=== PATIENT | male | born 1970 | race Caucasian/White ===

== ENCOUNTER → 2016-09-01 | Outpatient (CLI) | payer BC ==
--- NOTE | 2016-09-01 16:17 | MOTOR CONDUCTION ---
REQUESTING: Dr. Whaley. CLINICAL DIAGNOSIS: Episodes of memory loss, question nonconvulsive seizures or partial seizures. ELECTROENCEPHALOGRAM DIAGNOSIS: Essentially normal during wakefulness. DESCRIPTION OF TRACING: This EEG was obtained in the laboratory and was of good technical quality. A few or no muscle movements artifacts are seen. A simultaneous video analysis of patient movement and behavior was obtained. Photic stimulation was performed, hyperventilation was not. Drowsiness was not seen. Under these conditions, there is evidence for normal appearing background rhythm in the alpha range of up to 10 Hz of maximum frequency and 40 microvolts of maximum amplitude. This is maximum posterior head regions bilaterally symmetrical. Polymorphic mid frequency theta activity of modest voltage is seen over all head regions without clear focal or regional predominance. Anterior head region maximum bilaterally symmetrical low voltage fast activity beta range is present. Photic stimulation provokes a minimal driving response without a photomyogenic or photoparoxysmal component. At no time during the waking tracing is there evidence for potentially epileptogenic activity in the form of polyspike or spike wave bursts, focal sharp waves or focal spikes. INTERPRETATION: This electroencephalogram is essentially normal during wakefulness without evidence for focal or generalized encephalopathy and without evidence for potentially epileptogenic activity.
--- NOTE | 2016-09-04 08:47 | CODING QUERY NO DIAGNOSIS ---
: 1970 TREATMENT RENDERED WITHOUT A DIAGNOSIS To promote full compliance with coding requirements relating to patient care, physician participation is requested in all cases of digital communications manager uncertainty. Please assist us with providing a diagnosis/symptom for the test(s) below: A diagnosis/symptom was not documented on your Order. A valid diagnosis/symptom is required to bill all insurances. Please remember that we are unable to code a diagnosis of rule out, probable, possible, questionable, or suspected. Tests that require a diagnosis: DOS: 09/01/16 * EEG DIAGNOSIS: Provider Signature: Date: Thank you Shanthi Michael Health Information Management Once completed, please kindly fax back to [phone] For questions please call [phone]
== END | disposition home or self-care (01) ==
LOC: C.NEUR 12:31
PROVIDERS: ATTEND Psychiatry & Neurology Neurology
DX: R41.82 Altered mental status, unspecified (principal)

== ENCOUNTER 2019-04-12 12:09 | Inpatient (IN) ==
[2019-04-12] MEDS ORDERED: NITROGLYCERIN 2% OINTMENT 30GM TUBE EXT STA (12:16)
[2019-04-12 12:46] LABS: Basophils # (auto) 0.03 K/uL (0-0.2); Basophils % (auto) 0.3 %; Eosinophils # (auto) 0.32 K/uL (0-0.5); Eosinophils % (auto) 3.3 %; Hematocrit (blood only) 34.9 % (42-52); Hemoglobin 11.6 g/dL (14.0-18.0); Immature Granulocytes # (auto) 0.05 K/uL (0.00-0.02); Immature Granulocytes % (auto) 0.5 %; Lymphocytes % (auto) 12.4 %; Mean Corpuscular Hemoglobin 31.5 pg (25-34); Mean Corpuscular Hgb Conc 33.2 g/dL (32-36); Mean Corpuscular Volume 94.8 fL (80-100); Mean Platelet Volume 8.1 fL (7.4-10.4); Monocytes % (auto) 15.4 %; Neutrophils # (auto) 6.61 K/uL (1.4-6.5); Neutrophils % (auto) 68.1 %; Platelet Count 509 K/uL (130-400); RDW Coefficient of Variation 14.4 % (11.5-14.5); RDW Standard Deviation 49.9 fL (36.4-46.3); Red Blood Count 3.68 M/uL (4.7-6.1); White Blood Count 9.71 K/uL (4.8-10.8)
--- NOTE | 2019-04-12 12:49 | XRay Report ---
SINGLE VIEW CHEST CLINICAL HISTORY: Atypical chest pain. FINDINGS: An AP, portable, upright chest radiograph is obtained. No prior studies are available for c omparison at the time of dictation. The examination is degraded by portable technique and patient rot ation. The cardiomediastinal silhouette is unremarkable. There are left perihilar airspace opacities , as well as subpleural consolidation at the left lung base. No large pleural effusion or pneumothora x is seen. The bony thorax is grossly intact. IMPRESSION: 1. There are left perihilar and left basilar airspace opacities. Correlate clinically for evidence of pneumonia. Radiographic follow-up to resolution is recommended. 2. The right lung appears clear. Electronically signed by: Ike Yeboah M.D. 04/12/2019 12:48 PM
[2019-04-12 12:55] LABS: INR 1.3 (0.9-1.1); Prothrombin Time 13.2 Seconds (9.0-12.0)
[2019-04-12 13:03] LABS: Alanine Aminotransferase 31 U/L (12-78); Albumin Level 2.6 gm/dl (3.4-5.0); Aspartate Aminotransferase 34 U/L (15-37); BUN Creatinine Ratio 19.1 (10-20); Blood Urea Nitrogen 10 mg/dl (7-18); Calcium 9.2 mg/dl (8.5-10.1); Carbon Dioxide 21 mmol/L (21-32); Chloride 104 mmol/L (98-107); Est GFR (Non-African American) 123.4; Glucose 88 mg/dl (70-99); Lipase 365 U/L (73-393); Sodium 134 mmol/L (136-145)
[2019-04-12] MEDS ORDERED: POTASSIUM CHLORIDE 20 MEQ TABCR PO STA ×2 (13:10→13:29)
[2019-04-12 13:16] LABS: Albumin Globulin Ratio 0.6 (0.9-2); Alkaline Phosphatase 262 U/L (45-117); Bilirubin,Total 0.9 mg/dl (0.2-1); Creatine Kinase 48 U/L (39-308); Creatine Kinase MB 3.1 ng/ml (0.5-3.6); Globulin 4.3 gm/dl (2.5-4.0); Total Protein 6.9 gm/dl (6.4-8.2); Troponin I 0.046 ng/ml (0-0.045)
[2019-04-12] MEDS ORDERED: LEVOFLOXACIN/D5W 750 MG/150 ML BAG IV STA (13:16)
[2019-04-12] MEDS ORDERED: PIPERACILL/TAZOBAC CONSULT ACTIVE PRN ×2 (13:16→17:02)
[2019-04-12] MEDS ORDERED: PIPERACILLIN/TAZOBACTAM 4.5 GM/120 ML BAG IV ONE (13:16)
[2019-04-12] MEDS ORDERED: VANCOMYCIN CONSULT ACTIVE PRN ×2 (13:29→17:02)
[2019-04-12] MEDS ORDERED: VANCOMYCIN HCL 1,750 MG in SODIUM CHLORIDE 0.9% 500 ML IV ONE (13:29)
[2019-04-12] MEDS ORDERED: OPTIRAY 320 125ml IV PRN (13:34)
--- NOTE | 2019-04-12 13:44 | CT Scan Report ---
CT angio chest PE protocol CT DOSE: 637.32 mGy.cm HISTORY: Chest pain. Dyspnea. PE TECHNIQUE: Multiaxial CT images of the chest were performed following the intravenous administration of contrast to evaluate the pulmonary arteries. Maximal intensity projection images were also obtaine d. A dose lowering technique was utilized adhering to the principles of ALARA. COMPARISON STUDY: None. FINDINGS: Thoracic aorta is normal in course and caliber. There are filling defects involving the right lower lobe pulmonary arterial vasculature. No evidence for central pulmonary embolus. Evaluation of the lung parenchyma shows atelectatic changes focally involving the anterior aspects of the right as well as left upper lobe region. Slight interstitial findings are noted at the lung base s. There are components of pleural reactive changes lateral aspect left costophrenic angle. IMPRESSION: 1. Study is positive for right lower lobe pulmonary emboli. 2. Consolidative infiltrative change medial aspect upper right 3. Pleural reactive change at both lung bases. 4. Study should be repeated a later date to ensure complete resolution of the atelectatic or consolid ative changes of the upper lobe regions. The above report was generated using voice recognition software. It may contain grammatical, syntax or spelling errors. Electronically signed by: Maged Crystal M.D. 04/12/2019 1:43 PM
--- NOTE | 2019-04-12 14:33 | Emergency Department Note ---
Entered by Che Pagan acting as a scribe for History of Present Illness General Chief complaint: Chest Pain Time Seen by Provider: 04/12/19 12:10 Source: patient History of Present Illness Provider complaint: Chest Pain Onset (ago): hour(s) 2 Location: chest Radiation: non-radiation Pain Consistency: + now resolved Relieved By: + medication Exacerbated By: + none The patient is a 48 year old male who presents to the Emergency Room with complaints of chest pain that began about 2 hours ago. The patient notes that his pain began while he was laying down but is now resolved. The patient states that his symptoms were relieved by Nitro and Aspirin and were not exacerbated anything. The patient states the pain did not radiate anywhere else on his body. The patient mentioned that this was his first time experiencing chest pain since his surgery in February. Home Medications Home Medications Medication Instructions Recorded Confirmed Type acetaminophen 650 mg PO Q6H PRN 04/12/19 04/12/19 History acetaminophen 650 mg PO Q6H PRN 04/12/19 04/12/19 History albuterol sulfate [Ventolin HFA] 2 puff INHALATION Q6H PRN 04/12/19 04/12/19 History amlodipine 10 mg PO DAILY 04/12/19 04/12/19 History aspirin [Aspirin Low Dose] 81 mg PO DAILY 04/12/19 04/12/19 History atorvastatin [Lipitor] 80 mg PO DAILY 04/12/19 04/12/19 History bisacodyl [Dulcolax (bisacodyl)] 10 mg MD DAILY PRN 04/12/19 04/12/19 History bupropion HCl 150 mg PO DAILY 04/12/19 04/12/19 History clopidogrel 75 mg PO DAILY 04/12/19 04/12/19 History escitalopram oxalate [Lexapro] 10 mg PO DAILY 04/12/19 04/12/19 History escitalopram oxalate [Lexapro] 20 mg PO DAILY 04/12/19 04/12/19 History fluconazole [Diflucan] 100 mg PO DAILY 04/12/19 04/12/19 History fluticasone propionate [Flovent 2 puff INHALATION BID 04/12/19 04/12/19 History HFA] levothyroxine 50 mcg PO DAILY 04/12/19 04/12/19 History magnesium hydroxide [Milk of 30 ml PO DAILY PRN 04/12/19 04/12/19 History Magnesia] melatonin 6 mg PO HS PRN 04/12/19 04/12/19 History metoprolol tartrate 25 mg PO BID 04/12/19 04/12/19 History multivit,stress formula-zinc 1 tab PO DAILY 04/12/19 04/12/19 History [Stress Formula with Zinc] nitroglycerin 0.4 mg SUBLINGUAL DIRECTED PRN 04/12/19 04/12/19 History oxycodone 10 mg PO Q4H PRN 04/12/19 04/12/19 History sennosides 8.6 mg PO BID PRN 04/12/19 04/12/19 History Allergies Allergy/AdvReac Type Severity Reaction Status Date / Time Penicillins Allergy Unknown Unverified 04/12/19 14:08 pneumococcal vaccine Allergy Unknown Unverified 04/12/19 14:08 Past Med/Surg History Medical History Asthma CAD (coronary artery disease) Cardiac arrest Depression DVT (deep venous thrombosis) Hematoma following procedure Hyperlipidemia Hypertension Hypothyroid Pulmonary embolism Wound of left groin Surgical History History of coronary artery stent placement Personal history of extracorporeal membrane oxygenation (ECMO) Right groin access Family History Other Coronary heart disease Stroke Social History Preferred Language: Romansh Communication Ability: Effective Launch Leader Required: No Beliefs That Will Affect Care: None marital status: Single marital status details: Patient states he was never Current Living Situation: Alone and Rehab current occupational status: employed 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 and A total of 10 systems reviewed and were otherwise negative Physical Exam Vital Signs Vital Signs - 24 hr 04/12/19 12:03 04/12/19 12:15 04/12/19 12:16 Temperature 37.1 C Temperature Source Oral Pulse Rate 90 96 H 95 H Pulse Rate from SpO2 Sensor 96 H 95 H Pulse Rhythm Regular Pulse Strength Normal Respiratory Rate 17 25 H 17 Respiratory Effort / Characteristics Non-Labored Spontaneous Respiratory Depth Normal Respiratory Pattern Regular Blood Pressure 114/75 114/75 Blood Pressure Mean 88 90 Blood Pressure Position Lying Pulse Oximetry 96 100 99 Oxygen Delivery Method Room Air Room Air Sepsis Recent Fever Within 48 Hours No Sepsis New/Unexplained Change in Mental Status No Sepsis Action Taken by Nursing No Action Required 04/12/19 12:20 04/12/19 12:30 04/12/19 12:40 Temperature Temperature Source Pulse Rate 89 90 93 H Pulse Rate from SpO2 Sensor Pulse Rhythm Pulse Strength Respiratory Rate 19 15 26 H Respiratory Effort / Characteristics Respiratory Depth Respiratory Pattern Blood Pressure Blood Pressure Mean Blood Pressure Position Pulse Oximetry Oxygen Delivery Method Sepsis Recent Fever Within 48 Hours Sepsis New/Unexplained Change in Mental Status Sepsis Action Taken by Nursing 04/12/19 12:46 04/12/19 12:50 04/12/19 13:00 Temperature Temperature Source Pulse Rate 92 H 92 H 91 H Pulse Rate from SpO2 Sensor Pulse Rhythm Pulse Strength Respiratory Rate 20 14 19 Respiratory Effort / Characteristics Respiratory Depth Respiratory Pattern Blood Pressure 120/60 Blood Pressure Mean 93 Blood Pressure Position Pulse Oximetry Oxygen Delivery Method Sepsis Recent Fever Within 48 Hours Sepsis New/Unexplained Change in Mental Status Sepsis Action Taken by Nursing 04/12/19 13:01 04/12/19 13:10 04/12/19 13:15 Temperature Temperature Source Pulse Rate 92 H 92 H 91 H Pulse Rate from SpO2 Sensor Pulse Rhythm Pulse Strength Respiratory Rate 20 21 13 Respiratory Effort / Characteristics Respiratory Depth Respiratory Pattern Blood Pressure 105/72 101/78 Blood Pressure Mean 81 84 Blood Pressure Position Pulse Oximetry Oxygen Delivery Method Sepsis Recent Fever Within 48 Hours Sepsis New/Unexplained Change in Mental Status Sepsis Action Taken by Nursing 04/12/19 13:20 04/12/19 13:39 04/12/19 13:40 Temperature Temperature Source Pulse Rate 91 H 91 H 94 H Pulse Rate from SpO2 Sensor 91 H 93 H Pulse Rhythm Pulse Strength Respiratory Rate 20 6 L 13 Respiratory Effort / Characteristics Respiratory Depth Respiratory Pattern Blood Pressure 121/70 Blood Pressure Mean 90 Blood Pressure Position Pulse Oximetry 97 96 Oxygen Delivery Method Sepsis Recent Fever Within 48 Hours Sepsis New/Unexplained Change in Mental Status Sepsis Action Taken by Nursing 04/12/19 13:41 04/12/19 13:50 04/12/19 14:00 Temperature Temperature Source Pulse Rate 90 92 H 93 H Pulse Rate from SpO2 Sensor 90 94 H 92 H Pulse Rhythm Pulse Strength Respiratory Rate 19 15 20 Respiratory Effort / Characteristics Respiratory Depth Respiratory Pattern Blood Pressure 113/76 Blood Pressure Mean 89 Blood Pressure Position Pulse Oximetry 97 97 98 Oxygen Delivery Method Sepsis Recent Fever Within 48 Hours Sepsis New/Unexplained Change in Mental Status Sepsis Action Taken by Nursing 04/12/19 14:01 04/12/19 14:10 04/12/19 14:15 Temperature Temperature Source Pulse Rate 94 H 95 H 87 Pulse Rate from SpO2 Sensor 93 H 96 H 88 Pulse Rhythm Pulse Strength Respiratory Rate 16 13 16 Respiratory Effort / Characteristics Respiratory Depth Respiratory Pattern Blood Pressure 103/72 Blood Pressure Mean 78 Blood Pressure Position Pulse Oximetry 96 95 95 Oxygen Delivery Method Sepsis Recent Fever Within 48 Hours Sepsis New/Unexplained Change in Mental Status Sepsis Action Taken by Nursing 04/12/19 14:20 04/12/19 14:30 04/12/19 14:31 Temperature Temperature Source Pulse Rate 93 H 91 H 92 H Pulse Rate from SpO2 Sensor 93 H 92 H 92 H Pulse Rhythm Pulse Strength Respiratory Rate 16 16 15 Respiratory Effort / Characteristics Respiratory Depth Respiratory Pattern Blood Pressure 105/70 Blood Pressure Mean 81 Blood Pressure Position Pulse Oximetry 97 95 95 Oxygen Delivery Method Sepsis Recent Fever Within 48 Hours Sepsis New/Unexplained Change in Mental Status Sepsis Action Taken by Nursing 04/12/19 14:40 04/12/19 14:45 04/12/19 14:50 Temperature Temperature Source Pulse Rate 96 H 99 H 96 H Pulse Rate from SpO2 Sensor 97 H 97 H 96 H Pulse Rhythm Pulse Strength Respiratory Rate 18 24 17 Respiratory Effort / Characteristics Respiratory Depth Respiratory Pattern Blood Pressure 106/65 Blood Pressure Mean 72 Blood Pressure Position Pulse Oximetry 97 98 99 Oxygen Delivery Method Sepsis Recent Fever Within 48 Hours Sepsis New/Unexplained Change in Mental Status Sepsis Action Taken by Nursing 04/12/19 15:00 04/12/19 15:01 04/12/19 15:10 Temperature Temperature Source Pulse Rate 96 H 94 H 96 H Pulse Rate from SpO2 Sensor 96 H 94 H 96 H Pulse Rhythm Pulse Strength Respiratory Rate 18 15 15 Respiratory Effort / Characteristics Respiratory Depth Respiratory Pattern Blood Pressure 99/77 L Blood Pressure Mean 89 Blood Pressure Position Pulse Oximetry 97 97 99 Oxygen Delivery Method Sepsis Recent Fever Within 48 Hours Sepsis New/Unexplained Change in Mental Status Sepsis Action Taken by Nursing 04/12/19 15:15 04/12/19 15:20 04/12/19 15:30 Temperature Temperature Source Pulse Rate 96 H 92 H 96 H Pulse Rate from SpO2 Sensor 97 H 92 H 96 H Pulse Rhythm Pulse Strength Respiratory Rate 22 17 14 Respiratory Effort / Characteristics Respiratory Depth Respiratory Pattern Blood Pressure 101/73 109/78 Blood Pressure Mean 80 91 Blood Pressure Position Pulse Oximetry 97 97 99 Oxygen Delivery Method Sepsis Recent Fever Within 48 Hours Sepsis New/Unexplained Change in Mental Status Sepsis Action Taken by Nursing 04/12/19 15:31 04/12/19 15:40 Temperature Temperature Source Pulse Rate 95 H 94 H Pulse Rate from SpO2 Sensor 96 H 94 H Pulse Rhythm Pulse Strength Respiratory Rate 16 16 Respiratory Effort / Characteristics Respiratory Depth Respiratory Pattern Blood Pressure Blood Pressure Mean Blood Pressure Position Pulse Oximetry 96 96 Oxygen Delivery Method Sepsis Recent Fever Within 48 Hours Sepsis New/Unexplained Change in Mental Status Sepsis Action Taken by Nursing GENERAL: Awake, alert, well-appearing, in no acute distress. HENT: Normocephalic, atraumatic. Oropharynx unremarkable. EYES: Normal conjunctiva. Sclera non-icteric. NECK: Supple. No nuchal rigidity. FROM. No JVD. RESPIRATORY: Clear to auscultation. CARDIAC: Regular rate, normal rhythm. Extremities warm and well perfused. Pulses equal. ABDOMEN: Soft, non-distended. No tenderness to palpation. No rebound or guarding. No masses. RECTAL: Deferred. MUSCULOSKELETAL: Chest examination reveals no tenderness. The back is symmetrical on inspection without obvious abnormality. There is no CVA ten derness to palpation. No joint edema. LOWER EXTREMITIES: Calves are equal size bilaterally and non-tender. No edema. No discoloration. Wound vac in place left groin. NEURO: Normal sensorium. No sensory or motor deficits noted. SKIN: No rash or jaundice noted. Course Course 1211: Past medical records reviewed. The patient was evaluated in room C11B. A complete history and physical exam was performed. 1349: I spoke with Dr. Flor Noel- Hospitalist about the patient's case and she thinks the patient should go back to [place] [facility]. 1443: I spoke with Dr. Cruz- Pocket Grinder Operator about the patient's case and we reviwed all the aspects of the case along with Dr. Leiva who accepted the patient for further evaluation but there are no beds available so he will be transferred from here. 1507: I reevaluated and discussed the test results and treatment plan with the patient and he is in agreement with the plan. Administered Medications Amlodipine Besylate (Norvasc) 10 mg PO DAILY [facility] Stop: 05/13/19 08:59 Last Admin: 04/13/19 08:05 Dose: 10 mg Documented by: [id number] Aspirin (Ecotrin Ectab) 81 mg PO DAILY [facility] Stop: 05/13/19 08:59 Last Admin: 04/13/19 08:06 Dose: 81 mg Documented by: [id number] Atorvastatin Calcium (Lipitor) 80 mg PO DAILY [facility] Stop: 05/13/19 08:59 Last Admin: 04/13/19 08:05 Dose: 80 mg Documented by: [id number] Bupropion HCl (Wellbutrin-Xl) 150 mg PO DAILY [facility] Stop: 05/13/19 08:59 Last Admin: 04/13/19 08:06 Dose: 150 mg Documented by: [id number] Clopidogrel Bisulfate (Plavix) 75 mg PO DAILY [facility] Stop: 05/13/19 08:59 Last Admin: 04/13/19 08:05 Dose: 75 mg Documented by: [id number] Escitalopram Oxalate (Lexapro Tab) 10 mg PO DAILY [facility] Stop: 05/13/19 08:59 Last Admin: 04/13/19 08:06 Dose: 10 mg Documented by: [id number] Escitalopram Oxalate (Lexapro Tab) 20 mg PO DAILY [facility] Stop: 05/13/19 08:59 Last Admin: 04/13/19 08:06 Dose: 20 mg Documented by: [id number] Fluticasone Propionate (Flovent Hfa 44mcg) 2 puffs INH BID [facility] Stop: 05/12/19 20:59 Last Admin: 04/13/19 21:19 Dose: 2 puffs Documented by: [id number] Admin: 04/13/19 08:07 Dose: 2 puffs Documented by: [id number] Admin: 04/12/19 21:23 Dose: 2 puffs Documented by: [id number] Heparin Sodium/Dextrose (Heparin Sodium/Dextrose) 25,000 units in 500 mls @ 32 mls/hr IV .[id number] [facility]; Protocol Stop: 05/12/19 14:59 Last Admin: 04/13/19 23:59 Dose: 1,500 units/hr, 30 mls/hr Documented by: [id number] Cosigned by: [id number] Titration: 04/13/19 23:59 Dose: 1,500 units/hr, 30 mls/hr Documented by: [id number] Cosigned by: [id number] Titration: 04/13/19 21:28 Dose: 1,500 units/hr, 30 mls/hr Documented by: [id number] Cosigned by: [id number] Titration: 04/13/19 19:17 Dose: 1,600 units/hr, 32 mls/hr Documented by: [id number] Cosigned by: [id number] Titration: 04/13/19 14:24 Dose: 1,600 units/hr, 32 mls/hr Documented by: [id number] Cosigned by: [id number] Admin: 04/13/19 08:05 Dose: 1,450 units/hr, 29 mls/hr Documented by: [id number] Cosigned by: [id number] Titration: 04/13/19 08:05 Dose: 1,450 units/hr, 29 mls/hr Documented by: [id number] Cosigned by: [id number] Titration: 04/13/19 06:37 Dose: 1,450 units/hr, 29 mls/hr Documented by: [id number] Cosigned by: [id number] Titration: 04/12/19 23:15 Dose: 1,550 units/hr, 31 mls/hr Documented by: [id number] Cosigned by: [id number] Titration: 04/12/19 22:46 Dose: 1,550 units/hr, 31 mls/hr Documented by: [id number] Cosigned by: [id number] Titration: 04/12/19 16:43 Dose: 1,400 units/hr, 28 mls/hr Documented by: [id number] Cosigned by: [id number] Admin: 04/12/19 15:47 Dose: 1,400 units/hr, 28 mls/hr Documented by: [id number] Cosigned by: [id number] Ioversol (Optiray 320 125ml) 119 ml IV ONCE PRN PRN Reason: Interaction Checking Stop: 04/16/19 13:33 Last Admin: 04/12/19 13:34 Dose: 119 ml Documented by: [id number] Levothyroxine Sodium (Synthroid) 50 mcg PO DAILYBB [facility] Stop: 05/13/19 06:29 Last Admin: 04/13/19 05:23 Dose: 50 mcg Documented by: [id number] Metoprolol Tartrate (Lopressor) 25 mg PO BID [facility] Stop: 05/12/19 20:59 Last Admin: 04/13/19 21:21 Dose: 25 mg Documented by: [id number] Admin: 04/13/19 08:07 Dose: 25 mg Documented by: [id number] Admin: 04/12/19 21:24 Dose: 25 mg Documented by: [id number] Multivitamins (Multivitamin Tab) 1 tab PO QAM [facility] Stop: 05/13/19 08:59 Last Admin: 04/13/19 08:06 Dose: 1 tab Documented by: [id number] Potassium Chloride (Klor-Con M20) 20 meq PO BID [facility] Stop: 05/13/19 08:59 Last Admin: 04/13/19 21:20 Dose: 20 meq Documented by: [id number] Admin: 04/13/19 08:10 Dose: 20 meq Documented by: [id number] Zolpidem Tartrate (Ambien) 5 mg PO HS PRN PRN Reason: Sleep Stop: 05/13/19 20:52 Last Admin: 04/14/19 00:04 Dose: 5 mg Documented by: [id number] Discontinued Medications Heparin Sodium/Dextrose () 1 ea IV ONE ONE; Protocol Stop: 04/12/19 14:55 Last Admin: 04/12/19 15:48 Dose: Not Given Documented by: [id number] Piperacillin Sod/Tazobactam Sod (Zosyn) 4.5 gm in 120 mls @ 240 mls/hr IV NOW ONE Stop: 04/12/19 13:45 Last Infusion: 04/12/19 17:00 Dose: 0 mls/hr Documented by: [id number] Admin: 04/12/19 14:44 Dose: 240 mls/hr Documented by: [id number] Levofloxacin/Dextrose (Levaquin/D5w) 750 mg in 150 mls @ 100 mls/hr IV NOW STA Stop: 04/12/19 14:45 Last Infusion: 04/12/19 17:00 Dose: 0 mls/hr Documented by: [id number] Admin: 04/12/19 14:45 Dose: 100 mls/hr Documented by: [id number] Vancomycin HCl 1,750 mg/ (Sodium Chloride) 535 mls @ 200 mls/hr IV NOW ONE Stop: 04/12/19 16:09 Last Infusion: 04/12/19 17:25 Dose: 0 mls/hr Documented by: [id number] Admin: 04/12/19 14:44 Dose: 200 mls/hr Documented by: [id number] Vancomycin HCl 1,500 mg/ (Sodium Chloride) 530 mls @ 200 mls/hr IV Q8H [facility]; Protocol Stop: 04/19/19 21:59 Last Infusion: 04/13/19 07:54 Dose: 0 mls/hr Documented by: [id number] Admin: 04/13/19 05:15 Dose: 200 mls/hr Documented by: [id number] Infusion: 04/12/19 23:50 Dose: 0 mls/hr Documented by: [id number] Infusion: 04/12/19 21:38 Dose: 200 mls/hr Documented by: [id number] Infusion: 04/12/19 21:28 Dose: 0 mls/hr Documented by: [id number] Admin: 04/12/19 21:24 Dose: 200 mls/hr Documented by: [id number] Piperacillin Sod/Tazobactam (Sod 4.5 gm/ Dextrose) 120 mls @ 30 mls/hr IV Q8H [facility]; Protocol Stop: 04/19/19 19:59 Last Infusion: 04/13/19 16:02 Dose: 0 mls/hr Documented by: [id number] Admin: 04/13/19 12:02 Dose: 30 mls/hr Documented by: [id number] Infusion: 04/13/19 07:14 Dose: 0 mls/hr Documented by: [id number] Admin: 04/13/19 03:14 Dose: 30 mls/hr Documented by: [id number] Infusion: 04/13/19 01:00 Dose: 0 mls/hr Documented by: [id number] Infusion: 04/12/19 21:38 Dose: 30 mls/hr Documented by: [id number] Infusion: 04/12/19 21:28 Dose: 0 mls/hr Documented by: [id number] Admin: 04/12/19 21:24 Dose: 30 mls/hr Documented by: [id number] Heparin Sodium (Porcine) 3,000 (units/ Syringe) 3 mls @ 10 mls/min IV NOW ONE Stop: 04/12/19 23:01 Last Admin: 04/12/19 23:14 Dose: 10 mls/min Documented by: [id number] Cosigned by: [id number] Magnesium Sulfate/Dextrose (Magnesium Sulfate / D5w) 1 gm in 100 mls @ 100 mls/hr IV Q1H [facility] Stop: 04/13/19 01:59 Last Infusion: 04/13/19 02:40 Dose: 0 mls/hr Documented by: [id number] Admin: 04/13/19 01:40 Dose: 100 mls/hr Documented by: [id number] Infusion: 04/13/19 01:40 Dose: 0 mls/hr Documented by: [id number] Admin: 04/13/19 00:24 Dose: 100 mls/hr Documented by: [id number] Heparin Sodium (Porcine) 3,000 (units/ Syringe) 3 mls @ 10 mls/min IV ONE ONE Stop: 04/13/19 14:46 Last Admin: 04/13/19 14:46 Dose: 10 mls/min Documented by: [id number] Cosigned by: [id number] Nitroglycerin (Nitro-Bid 2%) 1 inch EXT NOW STA Stop: 04/12/19 12:17 Last Admin: 04/12/19 12:41 Dose: 1 inch Documented by: [id number] Potassium Chloride (Klor-Con M20) 40 meq PO NOW [facility] Stop: 04/12/19 13:11 Last Admin: 04/12/19 14:44 Dose: 40 meq Documented by: [id number] Potassium Chloride (Klor-Con M20) 40 meq PO NOW [facility] Stop: 04/12/19 13:30 Last Admin: 04/12/19 15:17 Dose: 40 meq Documented by: [id number] Critical Care Time Critical Care Time: Yes Total Critical Care Time: 90 I have personally spent approximately 90 minutes of critical care time in the direct management of this patient. This includes bedside care, interpretation of diagnostic studies, and testing, discussion with consultants, patient, and family members, and other required patient management activities. This approximate 90 minutes is in excess of all separately billable procedures. Medical Decision Making Differential Diagnosis Differential diagnosis: Etiologies such as shingles, musculoskeletal pain, pericarditis, myocarditis, cardiac ischemia, pericardial tamponade, pneumonia, pneumothorax, pleural effusion, hemothorax, pleurisy, aortic pathology, pulmonary embolism, intra- abdominal process, as well as others were considered. Medical Records Attestation: I reviewed the patient's medical records. Home Medications Current Medication List: was personally reviewed by me Laboratory Data Attestation: I reviewed the patient's lab results. Result diagrams: 04/13/19 05:36 04/13/19 05:36 Lab Results 04/12/19 04/12/19 04/12/19 Range/Units 12:35 12:35 12:35 WBC 9.71 (4.8-10.8) K/uL RBC 3.68 L (4.7-6.1) M/uL Hgb 11.6 L (14.0-18.0) g/dL Hct 34.9 L (42-52) % MCV 94.8 (80-100) fL MCH 31.5 (25-34) pg MCHC 33.2 (32-36) g/dL RDW Std Deviation 49.9 H (36.4-46.3) fL RDW Coeff of [place] 14.4 (11.5-14.5) % Plt Count 509 H (130-400) K/uL MPV 8.1 (7.4-10.4) fL Immature Gran % (Auto) 0.5 % Neut % (Auto) 68.1 % Lymph % (Auto) 12.4 % Wayne % (Auto) 15.4 % Eos % (Auto) 3.3 % Baso % (Auto) 0.3 % Immature Gran # (Auto) 0.05 H (0.00-0.02) K/uL Neut # (Auto) 6.61 H (1.4-6.5) K/uL Lymph # (Auto) 1.20 (1.2-3.4) K/uL Wayne # (Auto) 1.50 H (0.11-0.59) K/uL Eos # (Auto) 0.32 (0-0.5) K/uL Baso # (Auto) 0.03 (0-0.2) K/uL PT 13.2 H (9.0-12.0) Seconds INR 1.3 H (0.9-1.1) APTT 27.1 (21.0-31.0) Seconds PTT Ratio 1.0 Sodium 134 L (136-145) mmol/L Potassium 3.0 L (3.5-5.1) mmol/L Chloride 104 (98-107) mmol/L Carbon Dioxide 21 (21-32) mmol/L Anion Gap 9.0 (3-11) BUN 10 (7-18) mg/dl Creatinine 0.53 L (0.6-1.4) mg/dl Est Cr Clr Drug Dosing Not Reportable Est GFR ( Amer) 143.0 Est GFR (Non-Af Amer) 123.4 BUN/Creatinine Ratio 19.1 (10-20) Glucose 88 (70-99) mg/dl Calcium 9.2 (8.5-10.1) mg/dl Total Bilirubin 0.9 (0.2-1) mg/dl AST 34 (15-37) U/L ALT 31 (12-78) U/L Alkaline Phosphatase 262 H (45-117) U/L Total Creatine Kinase 48 (39-308) U/L CK-MB (CK-2) 3.1 (0.5-3.6) ng/ml CK/CKMB % Calc 6.5 H (0-3.0) Troponin I 0.046 H* (0-0.045) ng/ml Total Protein 6.9 (6.4-8.2) gm/dl Albumin 2.6 L (3.4-5.0) gm/dl Globulin 4.3 H (2.5-4.0) gm/dl Albumin/Globulin Ratio 0.6 L (0.9-2) Lipase 365 (73-393) U/L Imaging Data Radiologist's Impression: Radiology results as stated below per my review and the radiologist's interpretation: SINGLE VIEW CHEST CLINICAL HISTORY: Atypical chest pain. FINDINGS: An AP, portable, upright chest radiograph is obtained. No prior studies are available for comparison at the time of dictation. The examination is degraded by portable technique and patient rotation. The cardiomediastinal silhouette is unremarkable. There are left perihilar airspace opacities, as well as subpleural consolidation at the left lung base. No large pleural effusion or pneumothorax is seen. The bony thorax is grossly intact. IMPRESSION: 1. There are left perihilar and left basilar airspace opacities. Correlate clinically for evidence of pneumonia. Radiographic follow-up to resolution is recommended. 2. The right lung appears clear. Electronically signed by: Ike Yeboah M.D. 04/12/2019 12:[address] angio chest PE protocol CT DOSE: 637.32 mGy.cm HISTORY: Chest pain. Dyspnea. PE TECHNIQUE: Multiaxial CT images of the chest were performed following the intravenous administration of contrast to evaluate the pulmonary arteries. Maximal intensity projection images were also obtained. A dose lowering technique was utilized adhering to the principles of ALARA. COMPARISON STUDY: None. FINDINGS: Thoracic aorta is normal in course and caliber. There are filling defects involving the right lower lobe pulmonary arterial vasculature. No evidence for central pulmonary embolus. Evaluation of the lung parenchyma shows atelectatic changes focally involving the anterior aspects of the right as well as left upper lobe region. Slight interstitial findings are noted at the lung bases. There are components of pleural reactive changes lateral aspect left costophrenic angle. IMPRESSION: 1. Study is positive for right lower lobe pulmonary emboli. 2. Consolidative infiltrative change medial aspect upper right 3. Pleural reactive change at both lung bases. 4. Study should be repeated a later date to ensure complete resolution of the atelectatic or consolidative changes of the upper lobe regions. The above report was generated using voice recognition software. It may contain grammatical, syntax or spelling errors. Electronically signed by: Maged Crystal M.D. 04/12/2019 1:43 PM ECG Data Attestation: I personally reviewed and interpreted this ECG as follows: Indication: + chest pain Rate (beats per minute): 89 Rhythm: + normal sinus ECG Intervals/blocks: + Normal QT-c (QTC of 552) ECG ST segments: + Normal ST segments ECG Findings: + Other (Normal axis) Blood Pressure Blood Pressure Findings: Normal blood pressure Blood Pressure Disposition: further management by hospitalist [facility] Narrative This is a 48-year-old male who presents emergency department complaining of chest pain. Patient does have an elevation in his troponin. Using shared medical decision making with patient and family decision was made to send the patient for CAT scan of the chest. This was concerning for pulmonary embolus. The patient just had a lengthy stay at [place] due to his anticoagulation I did discuss the case with both cardiology as well as the medicine service at [place]. Patient was accepted to the medicine service however they do not have any beds therefore I did discuss the case with the hospitalist service here. The medicine service at [place] asked that the patient be placed on heparin. The patient was placed on a heparin drip here in the emergency department. He was given Nitropaste for his chest pain. Impression & Plan Chest pain, Pneumonia, CAD (coronary artery disease), Pulmonary embolism, Wound of left groin Discharge Plan Visit Data *Final* Discharge Date/Time: 04/12/19 16:18 Chief Complaint: Chest Pain ED Provider: Benjamin Oscar Discharge Problem: Chest pain, Pneumonia, CAD (coronary artery disease), Pulmonary embolism, Wound of left groin Patient Disposition: Admitted As Inpatient Discharge Instructions Interventions: ED Discharge Assessment Last Done: 04/12/19 16:18 Discharge Problem: Chest pain Qualifiers: Chest pain type: unspecified Qualified Code(s): R07.9 - Chest pain, unspecified Pneumonia Qualifiers: Pneumonia type: due to unspecified organism Laterality: unspecified laterality Lung location: unspecified part of lung Qualified Code(s): J18.9 - Pneumonia, unspecified organism CAD (coronary artery disease) Qualifiers: Coronary Disease-Associated Artery/Lesion type: unspecified vessel or lesion type [place] vs. transplanted heart: unspecified whether [place] or transplanted heart Associated angina: angina presence unspecified Qualified Code(s): I25.10 - Atherosclerotic heart disease of [place] coronary artery without angina pectoris Pulmonary embolism Qualifiers: Pulmonary embolism type: unspecified Chronicity: unspecified Acute cor pulmonale presence: unspecified Qualified Code(s): I26.99 - Other pulmonary embolism without acute cor pulmonale Wound of left groin Qualifiers: Encounter type: initial encounter Qualified Code(s): S31.109A - Unspecified open wound of abdominal wall, unspecified quadrant without penetration into peritoneal cavity, initial encounter The scribe's documentation has been prepared under my direction and personally reviewed by me in its entirety. I confirm that the note above accurately reflects all work, treatment, procedures, and medical decision making performed by me.
[2019-04-12] MEDS ORDERED: Heparin IV Standard *NO* Bolus IV ONE (14:54)
[2019-04-12] MEDS: HEPARIN SODIUM/DEXTROSE 25,000 UNITS/500 ML BAG IV SCH (15:47)
[2019-04-12 15:52] LABS: Partial Thromboplastin Time 27.1 Seconds (21.0-31.0)
[2019-04-12] MEDS ORDERED: bisacodyL 10 MG SUPP PR PRN (17:02)
[2019-04-12] MEDS ORDERED: NON-FORMULARY MEDICATION (Melatonin 6 MG) PO PRN (17:02)
[2019-04-12] MEDS ORDERED: SENNA 8.6 MG TAB PO PRN (17:02)
[2019-04-12] MEDS ORDERED: ACETAMINOPHEN 325 MG TAB PO PRN (17:02)
[2019-04-12] MEDS ORDERED: ALBUTEROL HFA 8 GM INHALER INH PRN (17:02)
[2019-04-12] MEDS ORDERED: OXYCODONE HCL IR 5 MG TAB (IMMEDIATE RELEASE) PO PRN (17:02)
[2019-04-12] MEDS ORDERED: MAGNESIUM HYDROXIDE SUSP 30 ML UDC PO PRN (17:02)
[2019-04-12] MEDS ORDERED: DOCUSATE SODIUM 100 MG CAP PO PRN (17:02)
[2019-04-12] MEDS ORDERED: NITROGLYCERIN SL 0.4 MG/TAB TAB SL PRN (17:02)
[2019-04-12 19:21] LABS: Magnesium 1.5 mg/dl (1.8-2.4); Phosphorus 3.4 mg/dl (2.5-4.9); Troponin I 0.045 ng/ml (0-0.045)
[2019-04-12] MEDS: FLUTICASONE PROP HFA INH 44 MCG INHALER INH SCH (21:23)
[2019-04-12] MEDS: PIPERACILLIN/TAZOBACTAM 4.5 GM in DEXTROSE 5% 100 ML IV SCH (21:24)
[2019-04-12] MEDS: METOPROLOL TARTRATE 25 MG TAB PO SCH (21:24)
[2019-04-12] MEDS: VANCOMYCIN HCL 1,500 MG in SODIUM CHLORIDE 0.9% 500 ML IV SCH (21:24)
[2019-04-12 22:22] LABS: Partial Thromboplastin Ratio 1.6; Partial Thromboplastin Time 42.4 Seconds (21.0-31.0)
--- NOTE | 2019-04-12 22:46 | Pharmacy Report ---
Pharmacy Abx Initial Consult - Date of Service April 12, 2019 - Pharmacy Dosing Scope Date of Consult: 04/12/19 Consultation requested by: Dr. Noel Pharmacy is consulted to initiate vancomycin and Zosyn IV dosing therapy, order appropriate labs and adjust drug dose/frequency. - Subjective The patient is a 48 year old M admitted on 04/12/19 15:45 with PE and possible pneumonia. [facility] - Objective Height: 5 ft 9 in Weight: 90.9 kg Vital Signs (Past 12hrs): Vital Signs Temp Pulse Pulse Resp BP BP Pulse Ox 04/12/19 19:36 36.6 C 113 H 16 109/70 96 04/12/19 16:51 103 H 04/12/19 15:45 97 H 17 112/92 04/12/19 15:40 94 H 16 96 04/12/19 15:31 95 H 16 96 04/12/19 15:30 96 H 14 109/78 99 04/12/19 15:20 92 H 17 97 04/12/19 15:15 96 H 22 101/73 97 04/12/19 15:10 96 H 15 99 04/12/19 15:01 94 H 15 97 04/12/19 15:00 96 H 18 99/77 L 97 04/12/19 14:50 96 H 17 99 04/12/19 14:45 99 H 24 106/65 98 04/12/19 14:40 96 H 18 97 04/12/19 14:31 92 H 15 95 04/12/19 14:30 91 H 16 105/70 95 04/12/19 14:20 93 H 16 97 04/12/19 14:15 87 16 103/72 95 04/12/19 14:10 95 H 13 95 04/12/19 14:01 94 H 16 96 04/12/19 14:00 93 H 20 113/76 98 04/12/19 13:50 92 H 15 97 04/12/19 13:41 90 19 97 04/12/19 13:40 94 H 13 121/70 96 04/12/19 13:39 91 H 6 L 97 04/12/19 13:20 91 H 20 04/12/19 13:15 91 H 13 101/78 04/12/19 13:10 92 H 21 04/12/19 13:01 92 H 20 105/72 04/12/19 13:00 91 H 19 04/12/19 12:50 92 H 14 04/12/19 12:46 92 H 20 120/60 04/12/19 12:40 93 H 26 H 04/12/19 12:30 90 15 04/12/19 12:20 89 19 04/12/19 12:16 95 H 17 99 04/12/19 12:15 96 H 25 H 114/75 100 04/12/19 12:03 37.1 C 90 17 114/75 96 Lab Results (24hrs): Laboratory Tests (24 Hours) 04/12/19 04/12/19 12:35 12:35 WBC 9.71 Neut # (Auto) 6.61 H Creatinine 0.53 L Est Cr Clr Drug Dosing Not Reportable Total Creatine Kinase 48 Micro Results: 04/12/19 13:55 Aerobic Blood Culture - Pending Blood Anaerobic Blood Culture - Pending 04/12/19 13:54 Aerobic Blood Culture - Pending Blood Anaerobic Blood Culture - Pending - Risk Factors for Resistance * Resident in a intermediate or extended-care facility - Assessment & Plan Assessment 48 year old M admitted with possible pneumonia. Plan vancomycin and Zosyn for treatment of pneumonia Vancomycin IV * Estimated PK Parameters: Vd 0.7 L/kg, utilized vancomycin AUC parameters * Loading dose: 1750 mg (19 mg/kg) * Maintenance dose: 1500 mg IV (16 mg/kg) every 8 hours * Goal trough level for pulmonary infection : 15 to 20 mcg/mL * Trough ordered for 04/14/19 prior to 0600 dose * Utilizing vancomycin AUC dosing - this targets a dose that would most likely have been ordered by pharmacist. Piperacillin/tazobactam * 3.375 g bolus administered over 30 minutes, then 3.375 g IV extended infusion every 8 hours for CrCl greater than 20 mL/min Pharmacy will continue to follow and will adjust dose/frequency as necessary. Thank you.
[2019-04-12] MEDS ORDERED: HEPARIN IV BOLUS 3,000 UNITS in SYRINGE 0 ML IV ONE (23:00)
--- NOTE | 2019-04-12 23:04 | History & Physical Report ---
Date of Service April 12, 2019 Assessment & Plan (1) Pulmonary embolism: CTA positive for right lower lobe pulmonary emboli. Hemodynamically stable. Patient denies chest pain, shortness of breath. No cough or hemoptysis. No evidence of right heart strain on EKG or imaging. Heparin drip per protocol Supplemental oxygen as needed Present on Admission?: Yes (2) Pneumonia: CT with consolidative infiltrative change medial aspect of the upper right lobe. He is afebrile, hemodynamically stable, no leukocytosis. Patient is not clinically present as pneumonia however, given recent critical illness and hospitalization he is at risk for such. Follow cultures as sent by ER Continue broad-spectrum antibiotics for now, vancomycin and Zosyn Procalcitonin in the morning Present on Admission?: Yes (3) CAD (coronary artery disease): Patient with reported history of cardiac arrest x3 in February 2019. Found to have total LAD occlusion as well as circumflex disease status post stent x3 (cath report not available to us at this time). Patient with brief episode of chest pain earlier today relieved with nitro. Mildly elevated troponin at 0.046, repeat = 0.045. No acute ischemic changes noted on EKG. Patient presently chest pain-free Continue aspirin 81 mg p.o. daily Continue atorvastatin 80 mg p.o. daily Continue Plavix 75 mg p.o. daily Continue metoprolol 25 mg p.o. twice daily Nitroglycerin as needed Present on Admission?: Yes (4) Hypothyroid: Chronic. Continue Synthroid 50 mcg p.o. daily TSH with a.m. labs Present on Admission?: Yes (5) Hypertension: Chronic. Stable. Blood pressure = 114/75 Continue amlodipine 10 mg p.o. daily -Continue metoprolol 25 mg p.o. twice daily Present on Admission?: Yes (6) Depression: Chronic. Stable. Well-controlled on current regimen Continue escitalopram 20 mg p.o. daily Continue Wellbutrin 150 mg p.o. daily Present on Admission?: Yes (7) Hyperlipidemia: Chronic. Stable. Continue atorvastatin Present on Admission?: Yes (8) Asthma: Stable respiratory status at present. Patient denies cough/shortness of breath/wheeze. Presently 96% on room air. Unremarkable pulmonary exam Continue albuterol as needed Continue Flovent Present on Admission?: Yes (9) Wound of left groin: Wound VAC in place. Routine management every shift [id number]. Monitor electrolytes and replete as needed. Heart healthy diet as tolerated. Continue bowel regimen, senna and Dulcolax. Prophylaxispatient to be on heparin drip for PE as above. Codefull Dispositionadmit to PCU History of Present Illness Chief Complaint: Chest pain, shortness of breath Primary Care Provider: [facility] Brent Graves is a very pleasant 48-year-old female with complicated medical history. Of note, majority of patient's care occurred at [facility]. We do not have records at this time but they have been requested. On 22 February 2019 patient went to [facility] for scheduled knee surgery. He reports that during anesthesia induction he had a cardiac arrest CPR was initia lily with ROSC attained. He was subsequently life flighted to [facility] during which he had a second cardiac arrest. He was taken directly to the [facility] where he was found to have a total LAD occlusion as well as a circumflex occlusion. Patient had a third cardiac arrest in the [facility]. He had 3 stents placed. Then proceeded to have a prolonged, 37-day ICU stay during which he was managed with ECMO. He developed left groin wound and hemorrhage while on anticoagulation. Also developed DVT x2, one in the neck and one in the leg. Additionally, he had a ventilator associated pneumonia treated with antibiotics and acute blood loss anemia. Patient reports waking up on 22 March and being told that all his complications had resolved. He has no recollection of his ICU stay. He has a wound VAC in place in the left groin. He was subsequently discharged to [facility] for rehab on 03/31/2019. Patient reports that he is pleased with his progress at [facility]. He is able to participate in PT and OT without difficulty. He reports walking 500 feet today. Today around 1130 he developed bandlike chest discomfort, squeezing in nature which he equates to angina. Pain associate with diaphoresis. Nitro x1 was given with relief. He denies shortness of breath/cough/wheeze/palpitations. She denies abdominal pain/nausea/vomiting/diarrhea/constipation. No additional complaints at this time. On arrival to the ER, patient found to be afebrile, hemodynamically stable. Labs significant for mildly elevated troponin at 0.046. EKG with no acute ischemic changes. CT chest with right lower lobe pulmonary emboli and consolidative infiltrative change in the medial aspect of the right upper lobe. Given patient's extensive and complicated stay at [facility], transfer was requested. He was accepted by Dr. Singh and is awaiting a bed - expected to be available tomorrow afternoon. Patient currently chest pain-free with no additional complaints ER course: Heparin drip, Levaquin 750 mg IV, vancomycin 1750 mg IV, Zosyn 4.5 g IV, nitroglycerin 1 inch, potassium 40 mEq p.o. Allergies Allergy/AdvReac Type Severity Reaction Status Date / Time Penicillins Allergy Unknown Unverified 04/12/19 14:08 pneumococcal vaccine Allergy Unknown Unverified 04/12/19 14:08 Home Medications Home Medications Medication Instructions Recorded Confirmed Type acetaminophen 650 mg PO Q6H PRN 04/12/19 04/12/19 History acetaminophen 650 mg PO Q6H PRN 04/12/19 04/12/19 History albuterol sulfate [Ventolin HFA] 2 puff INHALATION Q6H PRN 04/12/19 04/12/19 History amlodipine 10 mg PO DAILY 04/12/19 04/12/19 History aspirin [Aspirin Low Dose] 81 mg PO DAILY 04/12/19 04/12/19 History atorvastatin [Lipitor] 80 mg PO DAILY 04/12/19 04/12/19 History bisacodyl [Dulcolax (bisacodyl)] 10 mg ME DAILY PRN 04/12/19 04/12/19 History bupropion HCl 150 mg PO DAILY 04/12/19 04/12/19 History clopidogrel 75 mg PO DAILY 04/12/19 04/12/19 History escitalopram oxalate [Lexapro] 10 mg PO DAILY 04/12/19 04/12/19 History escitalopram oxalate [Lexapro] 20 mg PO DAILY 04/12/19 04/12/19 History fluconazole [Diflucan] 100 mg PO DAILY 04/12/19 04/12/19 History fluticasone propionate [Flovent 2 puff INHALATION BID 04/12/19 04/12/19 History HFA] levothyroxine 50 mcg PO DAILY 04/12/19 04/12/19 History magnesium hydroxide [Milk of 30 ml PO DAILY PRN 04/12/19 04/12/19 History Magnesia] melatonin 6 mg PO HS PRN 04/12/19 04/12/19 History metoprolol tartrate 25 mg PO BID 04/12/19 04/12/19 History multivit,stress formula-zinc 1 tab PO DAILY 04/12/19 04/12/19 History [Stress Formula with Zinc] nitroglycerin 0.4 mg SUBLINGUAL DIRECTED PRN 04/12/19 04/12/19 History oxycodone 10 mg PO Q4H PRN 04/12/19 04/12/19 History sennosides 8.6 mg PO BID PRN 04/12/19 04/12/19 History Past Med/Surg History Medical History (Updated 04/12/19 @ 23:18 by Jessica Noel DO) Asthma CAD (coronary artery disease) Cardiac arrest Depression DVT (deep venous thrombosis) Hyperlipidemia Hypertension Hypothyroid Pulmonary embolism Wound of left groin Surgical History History of coronary artery stent placement Family History (Updated 04/12/19 @ 23:00 by Jessica Noel DO) Other Coronary heart disease No pertinent family history in first degree relatives Stroke Social History Preferred Language: Estonian Communication Ability: Effective Medicine Worker Required: No Beliefs That Will Affect Care: None Current Living Situation: Rehab Other Information That Helps Us Care for You: No Feels Safe at Home: Yes Safety Concerns: Feels Safe At This Time Smoking Status: Former smoker Hx Alcohol Use: No Hx Substance Use: No Review of Systems Review of Systems: All systems reviewed & are unremarkable except as noted in HPI & below Physical Exam Physical Exam: General: patient resting comfortably, NAD, non-toxic in appearance, AA&O x 4 Skin: warm, dry, no rashes or lesions, wound VAC present in left groin with minimal output HEENT: NC/AT, PERRL, EOMI, anicteric sclera, conjunctiva without injection, external ear normal to inspection and nontender, nares patent, moist mucus membranes, dentition intact, no oropharyngeal lesions, neck supple, trachea midline, no LAD, no thyromegaly, no JVD Heart: +S1/S2, regular, no m/r/g Lungs: equal air entry bilaterally, no rales/rhonchi/wheezes Abd: +BS, soft, NT/ND, no masses/organomegaly/ascites Ext: warm, 2+ pulses in UE/LE bilaterally, no clubbing/cyanosis, trace pitting edema of bilateral lower extremities Neuro: nonfocal, patient AA&O x 4, speech intact, no facial droop, moving all extremities on command with equal strength 5/5 Results & Data Vital Signs (Past 12 Hours) Vital Signs Temp Pulse Pulse Resp BP BP Pulse Ox 04/12/19 19:36 36.6 C 113 H 16 109/70 96 04/12/19 16:51 103 H 04/12/19 15:45 97 H 17 112/92 04/12/19 15:40 94 H 16 96 04/12/19 15:31 95 H 16 96 04/12/19 15:30 96 H 14 109/78 99 04/12/19 15:20 92 H 17 97 04/12/19 15:15 96 H 22 101/73 97 04/12/19 15:10 96 H 15 99 04/12/19 15:01 94 H 15 97 04/12/19 15:00 96 H 18 99/77 L 97 04/12/19 14:50 96 H 17 99 04/12/19 14:45 99 H 24 106/65 98 04/12/19 14:40 96 H 18 97 04/12/19 14:31 92 H 15 95 04/12/19 14:30 91 H 16 105/70 95 04/12/19 14:20 93 H 16 97 04/12/19 14:15 87 16 103/72 95 04/12/19 14:10 95 H 13 95 04/12/19 14:01 94 H 16 96 04/12/19 14:00 93 H 20 113/76 98 04/12/19 13:50 92 H 15 97 04/12/19 13:41 90 19 97 04/12/19 13:40 94 H 13 121/70 96 04/12/19 13:39 91 H 6 L 97 04/12/19 13:20 91 H 20 04/12/19 13:15 91 H 13 101/78 04/12/19 13:10 92 H 21 04/12/19 13:01 92 H 20 105/72 04/12/19 13:00 91 H 19 04/12/19 12:50 92 H 14 04/12/19 12:46 92 H 20 120/60 04/12/19 12:40 93 H 26 H 04/12/19 12:30 90 15 04/12/19 12:20 89 19 04/12/19 12:16 95 H 17 99 04/12/19 12:15 96 H 25 H 114/75 100 04/12/19 12:03 37.1 C 90 17 114/75 96 Laboratory Results Lab Results 04/12/19 04/12/19 04/12/19 Range/Units 12:35 12:35 12:35 WBC 9.71 (4.8-10.8) K/uL RBC 3.68 L (4.7-6.1) M/uL Hgb 11.6 L (14.0-18.0) g/dL Hct 34.9 L (42-52) % MCV 94.8 (80-100) fL MCH 31.5 (25-34) pg MCHC 33.2 (32-36) g/dL RDW Std Deviation 49.9 H (36.4-46.3) fL RDW Coeff of [place] 14.4 (11.5-14.5) % Plt Count 509 H (130-400) K/uL MPV 8.1 (7.4-10.4) fL Immature Gran % (Auto) 0.5 % Neut % (Auto) 68.1 % Lymph % (Auto) 12.4 % [place] % (Auto) 15.4 % Eos % (Auto) 3.3 % Baso % (Auto) 0.3 % Immature Gran # (Auto) 0.05 H (0.00-0.02) K/uL Neut # (Auto) 6.61 H (1.4-6.5) K/uL Lymph # (Auto) 1.20 (1.2-3.4) K/uL [place] # (Auto) 1.50 H (0.11-0.59) K/uL Eos # (Auto) 0.32 (0-0.5) K/uL Baso # (Auto) 0.03 (0-0.2) K/uL PT 13.2 H (9.0-12.0) Seconds INR 1.3 H (0.9-1.1) APTT 27.1 (21.0-31.0) Seconds PTT Ratio 1.0 Sodium 134 L (136-145) mmol/L Potassium 3.0 L (3.5-5.1) mmol/L Chloride 104 (98-107) mmol/L Carbon Dioxide 21 (21-32) mmol/L Anion Gap 9.0 (3-11) BUN 10 (7-18) mg/dl Creatinine 0.53 L (0.6-1.4) mg/dl Est Cr Clr Drug Dosing Not Reportable Est GFR ( Amer) 143.0 Est GFR (Non-Af Amer) 123.4 BUN/Creatinine Ratio 19.1 (10-20) Glucose 88 (70-99) mg/dl Calcium 9.2 (8.5-10.1) mg/dl Phosphorus (2.5-4.9) mg/dl Magnesium (1.8-2.4) mg/dl Total Bilirubin 0.9 (0.2-1) mg/dl AST 34 (15-37) U/L ALT 31 (12-78) U/L Alkaline Phosphatase 262 H (45-117) U/L Total Creatine Kinase 48 (39-308) U/L CK-MB (CK-2) 3.1 (0.5-3.6) ng/ml CK/CKMB % Calc 6.5 H (0-3.0) Troponin I 0.046 H* (0-0.045) ng/ml Total Protein 6.9 (6.4-8.2) gm/dl Albumin 2.6 L (3.4-5.0) gm/dl Globulin 4.3 H (2.5-4.0) gm/dl Albumin/Globulin Ratio 0.6 L (0.9-2) Lipase 365 (73-393) U/L 04/12/19 04/12/19 Range/Units 18:33 21:55 WBC (4.8-10.8) K/uL RBC (4.7-6.1) M/uL Hgb (14.0-18.0) g/dL Hct (42-52) % MCV (80-100) fL MCH (25-34) pg MCHC (32-36) g/dL RDW Std Deviation (36.4-46.3) fL RDW Coeff of [place] (11.5-14.5) % Plt Count (130-400) K/uL MPV (7.4-10.4) fL Immature Gran % (Auto) % Neut % (Auto) % Lymph % (Auto) % [place] % (Auto) % Eos % (Auto) % Baso % (Auto) % Immature Gran # (Auto) (0.00-0.02) K/uL Neut # (Auto) (1.4-6.5) K/uL Lymph # (Auto) (1.2-3.4) K/uL [place] # (Auto) (0.11-0.59) K/uL Eos # (Auto) (0-0.5) K/uL Baso # (Auto) (0-0.2) K/uL PT (9.0-12.0) Seconds INR (0.9-1.1) APTT 42.4 H (21.0-31.0) Seconds PTT Ratio 1.6 Sodium (136-145) mmol/L Potassium (3.5-5.1) mmol/L Chloride (98-107) mmol/L Carbon Dioxide (21-32) mmol/L Anion Gap (3-11) BUN (7-18) mg/dl Creatinine (0.6-1.4) mg/dl Est Cr Clr Drug Dosing Est GFR ( Amer) Est GFR (Non-Af Amer) BUN/Creatinine Ratio (10-20) Glucose (70-99) mg/dl Calcium (8.5-10.1) mg/dl Phosphorus 3.4 (2.5-4.9) mg/dl Magnesium 1.5 L (1.8-2.4) mg/dl Total Bilirubin (0.2-1) mg/dl AST (15-37) U/L ALT (12-78) U/L Alkaline Phosphatase (45-117) U/L Total Creatine Kinase (39-308) U/L CK-MB (CK-2) (0.5-3.6) ng/ml CK/CKMB % Calc (0-3.0) Troponin I 0.045 (0-0.045) ng/ml Total Protein (6.4-8.2) gm/dl Albumin (3.4-5.0) gm/dl Globulin (2.5-4.0) gm/dl Albumin/Globulin Ratio (0.9-2) Lipase (73-393) U/L Diagnostic Findings SINGLE VIEW CHEST CLINICAL HISTORY: Atypical chest pain. FINDINGS: An AP, portable, upright chest radiograph is obtained. No prior studies are available for comparison at the time of dictation. The examination is degraded by portable technique and patient rotation. The cardiomediastinal silhouette is unremarkable. There are left perihilar airspace opacities, as well as subpleural consolidation at the left lung base. No large pleural effusion or pneumothorax is seen. The bony thorax is grossly intact. IMPRESSION: 1. There are left perihilar and left basilar airspace opacities. Correlate clinically for evidence of pneumonia. Radiographic follow-up to resolution is recommended. 2. The right lung appears clear. Electronically signed by: Ike Yeboah M.D. 04/12/2019 12:48 PM Dictated: 04/12/19 1245 Transcribed: 04/12/[address] angio chest PE protocol CT DOSE: 637.32 mGy.cm HISTORY: Chest pain. Dyspnea. PE TECHNIQUE: Multiaxial CT images of the chest were performed following the intravenous administration of contrast to evaluate the pulmonary arteries. Maximal intensity projection images were also obtained. A dose lowering technique was utilized adhering to the principles of ALARA. COMPARISON STUDY: None. FINDINGS: Thoracic aorta is normal in course and caliber. There are filling defects involving the right lower lobe pulmonary arterial vasculature. No evidence for central pulmonary embolus. Evaluation of the lung parenchyma shows atelectatic changes focally involving the anterior aspects of the right as well as left upper lobe region. Slight interstitial findings are noted at the lung bases. There are components of pleural reactive changes lateral aspect left costophrenic angle. IMPRESSION: 1. Study is positive for right lower lobe pulmonary emboli. 2. Consolidative infiltrative change medial aspect upper right 3. Pleural reactive change at both lung bases. 4. Study should be repeated a later date to ensure complete resolution of the atelectatic or consolidative changes of the upper lobe regions. The above report was generated using voice recognition software. It may contain grammatical, syntax or spelling errors. Electronically signed by: Maged Crystal M.D. 04/12/2019 1:43 PM Dictated: 04/12/19 1339 Transcribed: 04/12/19 1339 ECG Additional Comments: This study shows normal sinus rhythm at 89 bpm, normal axis, ME = 142, QRS = 92, QTc = 452, no acute ischemic changes, no prior study for comparison Code Status & VTE Plan Code Status Full code VTE Prophylaxis Plan VTE Prophylaxis will be ordered: Yes PG Care Time/CCT Total # of Minutes Spent Total Time Spent with Patient: Total time spent is greater than 50% in coordination of care (as documented) at patient's floor/unit and/or counseling patient: (1) Pneumonia Pneumonia type: due to unspecified organism Laterality: right Lung location: upper lobe of lung Qualified Code(s): J18.9 - Pneumonia, unspecified organism (2) CAD (coronary artery disease) Coronary Disease-Associated Artery/Lesion type: [place] artery [place] vs. transplanted heart: [place] heart Associated angina: without angina Qualified Code(s): I25.10 - Atherosclerotic heart disease of [place] coronary artery without angina pectoris (3) Hypothyroid Hypothyroidism type: unspecified Qualified Code(s): E03.9 - Hypothyroidism, unspecified (4) Hypertension Hypertension type: essential hypertension Qualified Code(s): I10 - Essential (primary) hypertension (5) Depression Depression Type: unspecified Qualified Code(s): F32.9 - Major depressive disorder, single episode, unspecified (6) Hyperlipidemia Hyperlipidemia type: unspecified Qualified Code(s): E78.5 - Hyperlipidemia, unspecified (7) Asthma Asthma severity: mild Asthma persistence: intermittent Asthma complication type: uncomplicated Qualified Code(s): J45.20 - Mild intermittent asthma, uncomplicated (8) Wound of left groin Encounter type: initial encounter Qualified Code(s): S31.109A - Unspecified open wound of abdominal wall, unspecified quadrant without penetration into peritoneal cavity, initial encounter (9) Pulmonary embolism Pulmonary embolism type: unspecified Chronicity: acute Acute cor pulmonale presence: without acute cor pulmonale Qualified Code(s): I26.99 - Other pulmonary embolism without acute cor pulmonale
[2019-04-13] MEDS: MAGNESIUM SULFATE / D5W 1 GM/100 ML BAG IV SCH ×2 (00:24→01:40)
[2019-04-13] MEDS: PIPERACILLIN/TAZOBACTAM 4.5 GM in DEXTROSE 5% 100 ML IV SCH ×2 (03:14→12:02)
[2019-04-13] MEDS: VANCOMYCIN HCL 1,500 MG in SODIUM CHLORIDE 0.9% 500 ML IV SCH (05:15)
[2019-04-13] MEDS: LEVOTHYROXINE SODIUM 50 MCG TABLET PO SCH (05:23)
[2019-04-13 06:06] LABS: Basophils # (auto) 0.04 K/uL (0-0.2); Basophils % (auto) 0.7 %; Eosinophils # (auto) 0.14 K/uL (0-0.5); Eosinophils % (auto) 2.4 %; Hematocrit (blood only) 35.6 % (42-52); Hemoglobin 11.5 g/dL (14.0-18.0); Immature Granulocytes # (auto) 0.05 K/uL (0.00-0.02); Immature Granulocytes % (auto) 0.8 %; Lymphocytes % (auto) 13.5 %; Mean Corpuscular Hemoglobin 31.1 pg (25-34); Mean Corpuscular Hgb Conc 32.3 g/dL (32-36); Mean Corpuscular Volume 96.2 fL (80-100); Mean Platelet Volume 8.1 fL (7.4-10.4); Monocytes # (auto) 0.81 K/uL (0.11-0.59); Monocytes % (auto) 13.7 %; Neutrophils # (auto) 4.08 K/uL (1.4-6.5); Neutrophils % (auto) 68.9 %; Platelet Count 493 K/uL (130-400); RDW Coefficient of Variation 14.4 % (11.5-14.5); RDW Standard Deviation 50.7 fL (36.4-46.3); White Blood Count 5.92 K/uL (4.8-10.8)
[2019-04-13 06:26] LABS: Partial Thromboplastin Ratio 2.5
[2019-04-13 06:37] LABS: Partial Thromboplastin Time 67.8 Seconds (21.0-31.0)
[2019-04-13 06:43] LABS: BUN Creatinine Ratio 9.7 (10-20); Calcium 9.3 mg/dl (8.5-10.1); Creatinine Clr Calc Pharmacy 152.3 ml/min; Est GFR (African American) 132.3; Est GFR (Non-African American) 114.2; Potassium 3.4 mmol/L (3.5-5.1)
[2019-04-13 06:54] LABS: Thyroid Stimulating Hormone 7.98 uIu/ml (0.300-4.500)
[2019-04-13] MEDS: CLOPIDOGREL BISULFATE 75 MG TAB PO SCH (08:05)
[2019-04-13] MEDS: ATORVASTATIN 40 MG TAB PO SCH (08:05)
[2019-04-13] MEDS: HEPARIN SODIUM/DEXTROSE 25,000 UNITS/500 ML BAG IV SCH ×2 (08:05→23:59)
[2019-04-13] MEDS: AMLODIPINE BESYLATE 5 MG TAB PO SCH (08:05)
[2019-04-13] MEDS: BuPROPion XL 150 MG TABCR PO SCH (08:06)
[2019-04-13] MEDS: MULTIVITAMIN TAB PO SCH (08:06)
[2019-04-13] MEDS: ESCITALOPRAM OXALATE 10 MG TAB PO SCH (08:06)
[2019-04-13] MEDS: ESCITALOPRAM OXALATE 20 MG TAB PO SCH (08:06)
[2019-04-13] MEDS: ASPIRIN 81 MG ECTAB PO SCH (08:06)
[2019-04-13] MEDS: FLUTICASONE PROP HFA INH 44 MCG INHALER INH SCH ×2 (08:07→21:19)
[2019-04-13] MEDS: METOPROLOL TARTRATE 25 MG TAB PO SCH ×2 (08:07→21:21)
[2019-04-13] MEDS: POTASSIUM CHLORIDE 20 MEQ TABCR PO SCH ×2 (08:10→21:20)
[2019-04-13] MEDS ORDERED: FLUCONAZOLE 100 MG TAB PO SCH (09:00)
[2019-04-13 13:12] LABS: Partial Thromboplastin Ratio 1.6; Partial Thromboplastin Time 42.7 Seconds (21.0-31.0)
--- NOTE | 2019-04-13 13:45 | Hospitalist Progress Note ---
Date of Service April 13, 2019 Assessment & Plan (1) Pulmonary embolism: CTA with right lower lobe pulmonary emboli. Dopplers of legs with RLE DVT. He also had a right IJ D[place] [facility] [place] presumably provoked by use of catheters. He had pulmonary hemorrhage while on ECMO. He also had a hemorrhage into his right thigh. Systemic anticoagulation was [place] [facility] [place] due to these 2 issues. I spoke with Dr Springer from pulmonary who consulted. He feels that neither of the 2 issues above are absolute contraindications. We would need to watch closely, however, for any bleeding complications while on heparin. Will continue heparin another day or two then transition to DOAC if not bleeding problems (right thigh, etc). Echo without right heart strain. Retrospectively I am not fully convinced his presenting chest pain was from VTE. I am more concerned it was anginal in nature. (2) DVT (deep venous thrombosis): RLE as noted on doppler today. Heparin infusion. Ultimate transition to DOAC. (3) Pneumonia: CT with consolidative infiltrative change medial aspect of the upper right lobe. He is afebrile, has no cough/congestion/fever/chills, is eating well, and has no leukocytosis. I believe these changes are more than likely resolving infiltrates from his time [place] [facility] [place] Will attempt to get old imaging to compare. Will not treat for acute pneumonia at this time. Stop all IV abx. (4) CAD (coronary artery disease): Patient with reported history of cardiac arrest x3 in February 2019. Found to have total LAD occlusion as well as circumflex disease status post stent x3. He also had stents placed in 2018. Troponin is minimally elevated. This could be from his PEs. Alternatively, the chest pain could have been anginal in nature leading to a small troponin leak. I have asked Dr Connolly from cardiology to consult. Echo with preserved EF and normal wall motion. In meantime - Continue aspirin 81 mg p.o. daily Continue atorvastatin 80 mg p.o. daily Continue Plavix 75 mg p.o. daily Continue metoprolol 25 mg p.o. twice daily Nitroglycerin as needed (5) Hypothyroid: TSH mildly elevated. Check a free T4. Continue Synthroid 50 mcg p.o. daily (6) Hypertension: Chronic. Controlled. Continue amlodipine 10 mg p.o. daily -Continue metoprolol 25 mg p.o. twice daily (7) Depression: Chronic. Controlled. Continue escitalopram 20 mg p.o. daily Continue Wellbutrin 150 mg p.o. daily (8) Hyperlipidemia: Continue atorvastatin (9) Asthma: No exacerbation at this time. Cont flovent. Albuterol prn. (10) Cardiac arrest: s/p cardiac arrest 02/2019 with successful ROSC. s/p near [place] stay [place] [facility] [place] much of which was spent on ECMO and ventilator. (11) Wound of left groin: Wound VAC removed by wound today. Cont local dressings. Has shanell right groin - will need f/u [place] [facility] [place] for such. (12) Elevated troponin: see discussion above in "CAD" likely myocardial demand ischemia Subjective pt reports he is feeling well. chest pain prior to admission was very similar to past episodes of angina. it was central in location, lasted a few minutes, and resolved with 1 dose of nitro SL. he did not have pleuritic pain or dyspnea. no nausea. it did not radiate. after the [facility] to seek medical attention at ER. since admit - tele NSR or sinus tach. no cp, dyspnea, ANDERSON or abd pain. he is aware of right thigh hematoma. the right thigh does not hurt. Review of Systems Constitutional: no fever, no chills, no fatigue and no anorexia Respiratory: no cough, no chest congestion, no dyspnea on exertion, no hemoptysis, no pain on inspiration, no pain with cough, no sputum production and no wheezing Cardiovascular: no chest pain, no orthopnea, no paroxysmal nocturnal dyspnea and no edema Gastrointestinal: no abdominal pain, no nausea and no vomiting Physical Exam Constitutional: well developed and well nourished; no acute distress ENMT: external ear and nose normal, oropharynx normal Respiratory: normal respiratory effort, lungs clear to auscultation Cardiovascular: Rate/Rhythm: regular rate and regular rhythm Heart Sounds: normal S1 and normal S2; no murmur Vessels: posterior tibial pulses present and dorsalis pedis pulses present; no JVD Extremities: no edema Gastrointestinal (Abdomen): normal bowel sounds, soft, nontender, no hepatosplenomegaly Musculoskeletal: right thigh is larger than left thigh; nontender; not warm Skin: incision right groin with shanell intact; dressing in place left groin Psychiatric: A+Ox3, euthymic affect Results & Data Vital Signs (Past 12 Hours) Vital Signs Temp Pulse Pulse Pulse Resp BP Pulse Ox 04/13/19 11:01 37.2 C 98 H 17 111/81 97 04/13/19 09:00 103 H 04/13/19 07:22 36.8 C 99 H 22 119/76 97 04/13/19 04:00 37.2 C 112 H 20 125/87 97 Laboratory Results Laboratory Results - last 24 hr 04/13/19 04/13/19 04/13/19 05:36 05:36 12:30 WBC RBC Hgb Hct MCV MCH MCHC RDW Std Deviation RDW Coeff of [place] Plt Count MPV APTT 42.7 H PTT Ratio 1.6 Sodium 135 L Potassium 3.4 L Chloride 105 Carbon Dioxide 23 Anion Gap 8.0 BUN 6 L Creatinine 0.64 Est Cr Clr Drug Dosing 152.3 Est GFR ( Amer) 132.3 Est GFR (Non-Af Amer) 114.2 BUN/Creatinine Ratio 9.7 L Glucose 128 H Calcium 9.3 Magnesium 2.0 Troponin I Procalcitonin 0.06 TSH 7.980 H Free T4 04/13/19 04/13/19 04/14/19 12:40 20:28 03:42 WBC APTT 71.4 H* PTT Ratio 2.6 Sodium Potassium Chloride Carbon Dioxide Anion Gap BUN Creatinine Est Cr Clr Drug Dosing Est GFR ( Amer) Est GFR (Non-Af Amer) BUN/Creatinine Ratio Glucose Calcium Magnesium Troponin I 0.042 Procalcitonin TSH Free T4 04/14/19 04/14/19 03:42 03:42 WBC RBC Hgb Hct MCV MCH MCHC RDW Std Deviation RDW Coeff of [place] Plt Count MPV PG Care Time/CCT Total # of Minutes Spent Total Time Spent with Patient: Total time spent is greater than 50% in coordination of care (as documented) at patient's floor/unit and/or counseling patient: (1) CAD (coronary artery disease) Associated angina: without angina Coronary Disease-Associated Artery/Lesion type: koi artery [place] vs. transplanted heart: koi heart Qualified Code(s): I25.10 - Atherosclerotic heart disease of koi coronary artery without angina pectoris (2) Depression Depression Type: unspecified Qualified Code(s): F32.9 - Major depressive disorder, single episode, unspecified (3) Hyperlipidemia Hyperlipidemia type: unspecified Qualified Code(s): E78.5 - Hyperlipidemia, unspecified (4) Hypothyroid Hypothyroidism type: unspecified Qualified Code(s): E03.9 - Hypothyroidism, unspecified (5) Wound of left groin Encounter type: initial encounter Qualified Code(s): S31.109A - Unspecified open wound of abdominal wall, unspecified quadrant without penetration into peritoneal cavity, initial encounter (6) Pulmonary embolism Acute cor pulmonale presence: without acute cor pulmonale Chronicity: acute Pulmonary embolism type: unspecified Qualified Code(s): I26.99 - Other pulmonary embolism without acute cor pulmonale (7) Hypertension Hypertension type: essential hypertension Qualified Code(s): I10 - Essential (primary) hypertension (8) Pneumonia Laterality: right Lung location: upper lobe of lung Pneumonia type: due to unspecified organism Qualified Code(s): J18.9 - Pneumonia, unspecified organism (9) Asthma Asthma complication type: uncomplicated Asthma persistence: intermittent Asthma severity: mild Qualified Code(s): J45.20 - Mild intermittent asthma, uncomplicated (10) DVT (deep venous thrombosis) DVT location: lower extremity Affected thrombotic vein of extremity: unspecified vein of extremity Chronicity: unspecified Laterality: unspecified laterality Qualified Code(s): I82.409 - Acute embolism and thrombosis of unspecified deep veins of unspecified lower extremity
[2019-04-13] MEDS ORDERED: HEPARIN IV BOLUS 3,000 UNITS in SYRINGE 0 ML IV ONE (14:45)
--- NOTE | 2019-04-13 15:42 | Ultrasound Report ---
US venous doppler LE bilateral CLINICAL HISTORY: Pulmonary embolism COMPARISON STUDY: No previous studies for comparison. FINDINGS: Grayscale, color flow, and spectral waveform analysis was performed. On the left, no thrombus was visualized. The study was limited as the common femoral, greater sapheno us, profunda veins could not be evaluated due to a overlying wound VAC. On the right, there is nonocclusive thrombus within the right common femoral vein, within one of 2 du plicated mid to distal superficial femoral veins, and one of 2 posterior tibial veins. Within the anterior thigh, there is a hypoechoic elongated mass measuring 16 x 9 x 2 cm. Although non specific, this likely represents a hematoma. IMPRESSION: 1. Right lower extremity DVT. 2. 16 x 9 x 2 cm hypoechoic right anterior thigh mass, likely representing a hematoma. Clinical follo w-up is advocated. Electronically signed by: Isrrael Benjamin M.D. 04/13/2019 3:40 PM
--- NOTE | 2019-04-13 16:08 | Pulmonary Consultation ---
Date of Consultation April 13, 2019 Assessment & Plan (1) Pulmonary embolism: Patient with pulmonary emboli in the right lower lobe Patient was started on heparin drip as well as empiric antibiotics based on abnormal CT scan of the chest Left upper lobe appears to have some scarring or inflammatory process Oxygenating well on room air Agree with anticoagulation Lower extremity duplex without acute DVT but with large hematoma of right anterior thigh. The pulmonary embolus is most likely sequela of recent long-term stay and inactivity Agree with anticoagulation as tolerated for 3 - 6 months and treat as single event Patient with no prior genetic predisposition or thromboembolic disease Monitor closely for bleeding as patient is on aspirin and clopidogrel for recent coronary artery stent placement Check labs in morning to watch hemoglobin and hematocrit Acute cor pulmonale presence: without acute cor pulmonale Chronicity: acute Pulmonary embolism type: unspecified Qualified Code(s): I26.99 - Other pulmonary embolism without acute cor pulmonale (2) Hematoma following procedure: Patient with a solitary suture that was still remnant from what I presume to be the ECMO catheter vascular access The suture was removed without difficulty and without bleeding. Patient also has several herbert in the right groin which appear to be over a well healed surgical scar We will evaluate tomorrow but I think that the herbert can be removed prior to discharge back to [facility] Thank you very much for this kind referral. We will follow the patient along with you. Please refer to Dr. Springer's addendum for further recommendations. Supervising Physician Co-Signing Physician Notes Seen and examined. EMR and imaging independently reviewed. Discussed with WINSTON bee and agree with his assessment and plan as noted. Recommend echocardiogram for risk stratification as well as duplex ultrasound of the lower extremity and assessment of biomarkers including troponin and BNP. If these are negative, short-term anticoagulation (3 months) may be appropriate. Do not think is prior history of thigh hematoma or pulmonary hemorrhage are absolute or relative contraindications to anticoagulation in the setting. Would continue heparin overnight and if he does well could consider transition to an oral agent. The parenchymal abnormalities identified on his CAT scan are likely chronic from his prior admission but will need to be correlated. We will continue to follow. Feel free to contact us if we can be of additional assistance History of Present Illness Attending Physician: Kunal Weston History of Present Illness Attending: Dr. Springer Is a 48-year-old male that was admitted for chest pain. He has a past medical history including CAD with recent DE with coronary artery stent placement, asthma, DVT, hyperlipidemia, hypertension, hypothyroidism, recent wound VAC to left groin, ECMO therapy, and depression. The patient was admitted 12 4 due to chest pain. He was recently at [facility] after a 37-day prolonged ICU stay with ECMO after having a cardiac arrest in the [employer] where he was found to have complete occlusion of the LAD and circumflex arteries. He had 3 stents placed. He developed ventilator associated pneumonia as well as acute blood loss. He was transferred to the [facility] for rehab on 03/31/2019. On the day of admission he developed chest tightness which he describes as center of the chest and had relief of angina with one sublingual nitro tablet. He was brought to the emergency room for evaluation and found to be afebrile and hemodynamically stable. Due to the patient's complicated stay and due to the chest pain, a CTA of the chest was completed which revealed a right lower lobe subsegmental emboli. Patient was admitted to the telemetry unit and is currently on a heparin drip, Zosyn, and vancomycin. He was seen by wound care who remove the wound VAC from his left groin. There is still herbert in place at his right groin which I assume is from the ECMO vascular access. Patient denies any pain. He has no further chest pain. He has no shortness of breath. He denies any fever, chills, sweats, rigors. He is not aware of any tachycardia or tachyarrhythmia. He has no hemoptysis. He has no back or kidney pain. He does describe focal right thigh pain which is only painful with aggravation by d eep touch. The patient has no other acute complaints. Discussion about past medical history, patient denies any personal or family history of thromboembolic disease. He is unaware of any bleeding disorders or blood dyscrasias. He is unaware of any genetic pathology. He is mother and father both had heart disease and there is stroke history on the father's side. Allergies Allergy/AdvReac Type Severity Reaction Status Date / Time Penicillins Allergy Unknown Unverified 04/12/19 14:08 pneumococcal vaccine Allergy Unknown Unverified 04/12/19 14:08 Home Medications Home Medications Medication Instructions Recorded Confirmed Type acetaminophen 650 mg PO Q6H PRN 04/12/19 04/12/19 History acetaminophen 650 mg PO Q6H PRN 04/12/19 04/12/19 History albuterol sulfate [Ventolin HFA] 2 puff INHALATION Q6H PRN 04/12/19 04/12/19 History amlodipine 10 mg PO DAILY 04/12/19 04/12/19 History aspirin [Aspirin Low Dose] 81 mg PO DAILY 04/12/19 04/12/19 History atorvastatin [Lipitor] 80 mg PO DAILY 04/12/19 04/12/19 History bisacodyl [Dulcolax (bisacodyl)] 10 mg IA DAILY PRN 04/12/19 04/12/19 History bupropion HCl 150 mg PO DAILY 04/12/19 04/12/19 History clopidogrel 75 mg PO DAILY 04/12/19 04/12/19 History escitalopram oxalate [Lexapro] 10 mg PO DAILY 04/12/19 04/12/19 History escitalopram oxalate [Lexapro] 20 mg PO DAILY 04/12/19 04/12/19 History fluconazole [Diflucan] 100 mg PO DAILY 04/12/19 04/12/19 History fluticasone propionate [Flovent 2 puff INHALATION BID 04/12/19 04/12/19 History HFA] levothyroxine 50 mcg PO DAILY 04/12/19 04/12/19 History magnesium hydroxide [Milk of 30 ml PO DAILY PRN 04/12/19 04/12/19 History Magnesia] melatonin 6 mg PO HS PRN 04/12/19 04/12/19 History metoprolol tartrate 25 mg PO BID 04/12/19 04/12/19 History multivit,stress formula-zinc 1 tab PO DAILY 04/12/19 04/12/19 History [Stress Formula with Zinc] nitroglycerin 0.4 mg SUBLINGUAL DIRECTED PRN 04/12/19 04/12/19 History oxycodone 10 mg PO Q4H PRN 04/12/19 04/12/19 History sennosides 8.6 mg PO BID PRN 04/12/19 04/12/19 History Patient History Medical History (Updated 04/13/19 @ 16:11 by Ike Bee PA-C) Asthma CAD (coronary artery disease) Cardiac arrest Depression DVT (deep venous thrombosis) Hematoma following procedure Hyperlipidemia Hypertension Hypothyroid Pulmonary embolism Wound of left groin Surgical History (Updated 04/13/19 @ 16:00 by Ike Bee PA-C) History of coronary artery stent placement Personal history of extracorporeal membrane oxygenation (ECMO) Right groin access Family History Other Coronary heart disease Stroke Social History (Updated 04/13/19 @ 16:03 by Ike Bee PA-C) Preferred Language: Swedish Communication Ability: Effective Tipple Worker Required: No Beliefs That Will Affect Care: None marital status: Single marital status details: Patient states he was never Current Living Situation: Alone and Rehab current occupational status: employed 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 Pleasant EYES: No icterus, gaze conjugate. Pupils equal round and reactive to light NOSE: Dried blood on bilateral nares and fingers of left hand MOUTH: No lesions or candidiasis. Mucosa moist. Tongue midline. No facial droop NECK: Supple. No stridor LUNGS: CTA B/L, no wheezes, rales or rhonchi. Breath sounds equal at the bases. No adventitious breath sounds HEART: Regular, rate controlled. No appreciation of ectopy ABDOMEN: Soft, NT, ND, BS Present. EXTREMITIES: No LE edema, pedal pulses intact. GROIN: Dressing over left groin from recent removal of wound VAC. Herbert in right groin over what appears to be a well-healed surgical scar. There is a single suture in the groin that is not retaining tissue or appliances. This was removed by me at bedside during examination with no bleeding or evidence of in fection. There is a small area of nonhealing indentation at the right groin to the medial aspect of the herbert. This does not appear to be purulent or draining. NEURO: A&OX3 Results & Data Vital Signs (Past 12 Hours) Vital Signs Temp Pulse Pulse Pulse Resp BP Pulse Ox 04/13/19 15:44 36.7 C 100 H 18 131/90 97 04/13/19 11:01 37.2 C 98 H 17 111/81 97 04/13/19 09:00 103 H 04/13/19 07:22 36.8 C 99 H 22 119/76 97 04/13/19 04:00 37.2 C 112 H 20 125/87 97 Laboratory Results 04/13/19 05:36 04/13/19 05:[address] angio chest PE protocol CT DOSE: 637.32 mGy.cm HISTORY: Chest pain. Dyspnea. PE TECHNIQUE: Multiaxial CT images of the chest were performed following the intravenous administration of contrast to evaluate the pulmonary arteries. Maximal intensity projection images were also obtained. A dose lowering technique was utilized adhering to the principles of ALARA. COMPARISON STUDY: None. FINDINGS: Thoracic aorta is normal in course and caliber. There are filling defects involving the right lower lobe pulmonary arterial vasculature. No evidence for central pulmonary embolus. Evaluation of the lung parenchyma shows atelectatic changes focally involving the anterior aspects of the right as well as left upper lobe region. Slight interstitial findings are noted at the lung bases. There are components of pleural reactive changes lateral aspect left costophrenic angle. IMPRESSION: 1. Study is positive for right lower lobe pulmonary emboli. 2. Consolidative infiltrative change medial aspect upper right 3. Pleural reactive change at both lung bases. 4. Study should be repeated a later date to ensure complete resolution of the atelectatic or consolidative changes of the upper lobe regions. Electronically signed by: Maged Crystal M.D. 04/12/2019 1:43 PM US venous doppler LE bilateral CLINICAL HISTORY: Pulmonary embolism COMPARISON STUDY: No previous studies for comparison. FINDINGS: Grayscale, color flow, and spectral waveform analysis was performed. On the left, no thrombus was visualized. The study was limited as the common femoral, greater saphenous, profunda veins could not be evaluated due to a overlying wound VAC. On the right, there is nonocclusive thrombus within the right common femoral vein, within one of 2 duplicated mid to distal superficial femoral veins, and one of 2 posterior tibial veins. Within the anterior thigh, there is a hypoechoic elongated mass measuring 16 x 9 x 2 cm. Although nonspecific, this likely represents a hematoma. IMPRESSION: 1. Right lower extremity DVT. 2. 16 x 9 x 2 cm hypoechoic right anterior thigh mass, likely representing a hematoma. Clinical follow-up is advocated. Electronically signed by: Isrrael Benjamin M.D. 04/13/2019 3:40 PM PG Care Time/CCT Total # of Minutes Spent Total Time Spent with Patient: Total time spent is greater than 50% in coordination of care (as documented) at patient's floor/unit and/or counseling patient: 60 minutes
--- NOTE | 2019-04-13 17:15 | Cardiology Consultation ---
Date of Consultation April 13, 2019 Assessment & Plan (1) Chest pain: He describes his chest pain is angina. This is certainly concerning given his history. It seems that he perhaps did have angina in the remote past leading up to what he describes as prior percutaneous intervention involving the left circumflex. His more recent episode did not involve angina as he was likely under anesthetic at the time. The episode itself was very brief in duration. I would not expect any elevation is biomarkers given the brief duration of his symptom. He is known to have other intrathoracic abnormalities such as a PE and possibly consolidative changes. He also had anxiety at that time which may have worsened any symptoms he had. I did broach the topic of noninvasive testing, but he seems very resistant to any additional testing as he has had a bad experience with stress testing previously. Do not think his symptoms warrant angiography nor would do I think he would be amenable to that procedure. I think if he were likely to have a complication from his recent interventions that would be acute stent thrombosis which would presented differently. He will need to be on systemic anticoagulation for his pulmonary embolus. In combination with dual anti-platelet therapy I believe this provides good protection against any additional coronary events. (2) CAD (coronary artery disease): On many patients who require systemic anticoagulation can have there aspirin discontinued, he had a fairly severe event would what appears to be significant clot burden. He also has left main stenting by report. As such, I think would be reasonable to continue him both on dual anti-platelet therapy and systemic anticoagulation in the short-term. (3) Pulmonary embolism: Unclear if this produced any symptoms. However, he does have both lower extremity thrombus and pulmonary embolus. He will require systemic anticoagulation for several months. No evidence of significant right heart strain on echocardiography. History of Present Illness Reason for Consultation: Chest pain Requesting Physician: Trista Attending Physician: Kunal Weston History of Present Illness The patient is a 48-year-old gentleman with a very extensive past medical history to include a PEA arrest during surgery in February 2019. He appears to have a remote history of coronary disease and had previously undergone percutaneous intervention to the circumflex artery by his report. However, during a right shoulder surgery in February he became bradycardic and pulseless. He was evaluated locally and discovered to have significant coronary and occlusion to involve thrombus in the left main left circumflex and left anterior descending arteries. He was treated emergently with percutaneous intervention and flown to [facility] with balloon pump support. He had an extended hospitalization at that facility with multiple complications. He did require ECMO support and had some complications related to cannulation, pneumonias and hemorrhage. However, he eventually improved and was able to be discharged to a rehabilitation facility locally. It seems he was doing well in rehab until this afternoon. Patient states that he had ambulated approximately 500 feet and returned to his bed. When resting he began to experience some symptoms of substernal chest discomfort. He describes this as angina. Seems that he has had similar symptoms in the past leading up to his percutaneous intervention of the circumflex remotely. He admits to being somewhat anxious regarding this symptom. He was administered nitroglycerin in a rapid fashion by the nursing staff and this alleviated his symptoms. He feels the entire episode lasted only a few minutes. He has not had recurrence of this symptom. He did not have exertional symptoms. During evaluation at our facility the patient was noted to have both evidence of pulmonary embolus and right lower extremity DVT. He did not endorse symptoms of pleuritic chest pain. He did not endorse feelings of dyspnea or hypoxia. He did not complain of right leg discomfort. Currently he is feeling quite well. Allergies Allergy/AdvReac Type Severity Reaction Status Date / Time Penicillins Allergy Unknown Unverified 04/12/19 14:08 pneumococcal vaccine Allergy Unknown Unverified 04/12/19 14:08 Home Medications Home Medications Medication Instructions Recorded Confirmed Type acetaminophen 650 mg PO Q6H PRN 04/12/19 04/12/19 History acetaminophen 650 mg PO Q6H PRN 04/12/19 04/12/19 History albuterol sulfate [Ventolin HFA] 2 puff INHALATION Q6H PRN 04/12/19 04/12/19 History amlodipine 10 mg PO DAILY 04/12/19 04/12/19 History aspirin [Aspirin Low Dose] 81 mg PO DAILY 04/12/19 04/12/19 History atorvastatin [Lipitor] 80 mg PO DAILY 04/12/19 04/12/19 History bisacodyl [Dulcolax (bisacodyl)] [address] DAILY PRN 04/12/19 04/12/19 History bupropion HCl 150 mg PO DAILY 04/12/19 04/12/19 History clopidogrel 75 mg PO DAILY 04/12/19 04/12/19 History escitalopram oxalate [Lexapro] 10 mg PO DAILY 04/12/19 04/12/19 History escitalopram oxalate [Lexapro] 20 mg PO DAILY 04/12/19 04/12/19 History fluconazole [Diflucan] 100 mg PO DAILY 04/12/19 04/12/19 History fluticasone propionate [Flovent 2 puff INHALATION BID 04/12/19 04/12/19 History HFA] levothyroxine 50 mcg PO DAILY 04/12/19 04/12/19 History magnesium hydroxide [Milk of 30 ml PO DAILY PRN 04/12/19 04/12/19 History Magnesia] melatonin 6 mg PO HS PRN 04/12/19 04/12/19 History metoprolol tartrate 25 mg PO BID 04/12/19 04/12/19 History multivit,stress formula-zinc 1 tab PO DAILY 04/12/19 04/12/19 History [Stress Formula with Zinc] nitroglycerin 0.4 mg SUBLINGUAL DIRECTED PRN 04/12/19 04/12/19 History oxycodone 10 mg PO Q4H PRN 04/12/19 04/12/19 History sennosides 8.6 mg PO BID PRN 04/12/19 04/12/19 History Patient History Medical History Asthma CAD (coronary artery disease) Cardiac arrest Depression DVT (deep venous thrombosis) Hematoma following procedure Hyperlipidemia Hypertension Hypothyroid Pulmonary embolism Wound of left groin Surgical History History of coronary artery stent placement Personal history of extracorporeal membrane oxygenation (ECMO) Right groin access Family History Other Coronary heart disease Stroke Social History Preferred Language: Romanian Communication Ability: Effective Price Analyst Required: No Beliefs That Will Affect Care: None marital status: Single marital status details: Patient states he was never Current Living Situation: Alone and Rehab current occupational status: employed 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 Mood and affect appeared normal. He answered all questions appropriately. HEENT: Pupils are equal and reactive to light and accommodation. Extraocular movements are intact. The sclerae are anicteric. Neuro: Cranial nerves intact Neck: Patient's neck is supple. He has palpable carotid pulses bilaterally without bruits on auscultation. There is no evidence of jugular venous distention. The thyroid is not enlarged. Lungs: Clear to auscultation bilaterally. He has good air movement without use of accessory muscles. No rales wheezes or rhonchi. Cardiac: Heart demonstrates a regular rate and rhythm. Normal S1 and S2. No murmurs on examination. Pulses: The patient has palpable radial pulses bilaterally that are equal in intensity Extremities: There was no evidence of hypoperfusion. There is no cyanosis or clubbing. There is no edema. Skin: I did not appreciate any rashes on examination today. Bandage in left groin. Results & Data Vital Signs (Past 12 Hours) Vital Signs Temp Pulse Pulse Pulse Resp BP Pulse Ox 04/13/19 15:44 36.7 C 100 H 18 131/90 97 04/13/19 11:01 37.2 C 98 H 17 111/81 97 04/13/19 09:00 103 H 04/13/19 07:22 36.8 C 99 H 22 119/76 97 Laboratory Results Abnormal Lab Results 04/12/19 04/12/19 04/12/19 18:33 21:55 23:15 WBC RBC Hgb Hct MCV MCH MCHC RDW Std Deviation RDW Coeff of [place] Plt Count MPV Immature Gran % (Auto) Neut % (Auto) Lymph % (Auto) Trigg % (Auto) Eos % (Auto) Baso % (Auto) Immature Gran # (Auto) Neut # (Auto) Lymph # (Auto) Trigg # (Auto) Eos # (Auto) Baso # (Auto) APTT 42.4 H PTT Ratio 1.6 Sodium Potassium Chloride Carbon Dioxide Anion Gap BUN Creatinine Est Cr Clr Drug Dosing Est GFR ( Amer) Est GFR (Non-Af Amer) BUN/Creatinine Ratio Glucose Calcium Phosphorus 3.4 Magnesium 1.5 L Troponin I 0.045 Procalcitonin TSH Nasal Screen MRSA (PCR) Negative 04/13/19 04/13/19 04/13/19 02:38 05:36 05:36 WBC RBC Hgb Hct MCV MCH MCHC RDW Std Deviation RDW Coeff of [place] Plt Count MPV Immature Gran % (Auto) Neut % (Auto) Lymph % (Auto) Trigg % (Auto) Eos % (Auto) Baso % (Auto) Immature Gran # (Auto) Neut # (Auto) Lymph # (Auto) Trigg # (Auto) Eos # (Auto) Baso # (Auto) APTT 67.8 H* PTT Ratio 2.5 Sodium 135 L Potassium 3.4 L Chloride 105 Carbon Dioxide 23 Anion Gap 8.0 BUN 6 L Creatinine 0.64 Est Cr Clr Drug Dosing 152.3 Est GFR ( Amer) 132.3 Est GFR (Non-Af Amer) 114.2 BUN/Creatinine Ratio 9.7 L Glucose 128 H Calcium 9.3 Phosphorus Magnesium 2.0 Troponin I 0.052 H* Procalcitonin TSH 7.980 H Nasal Screen MRSA (PCR) 04/13/19 04/13/19 04/13/19 05:36 05:36 12:30 WBC 5.92 RBC 3.70 L Hgb 11.5 L Hct 35.6 L MCV 96.2 MCH 31.1 MCHC 32.3 RDW Std Deviation 50.7 H RDW Coeff of [place] 14.4 Plt Count 493 H MPV 8.1 Immature Gran % (Auto) 0.8 Neut % (Auto) 68.9 Lymph % (Auto) 13.5 Trigg % (Auto) 13.7 Eos % (Auto) 2.4 Baso % (Auto) 0.7 Immature Gran # (Auto) 0.05 H Neut # (Auto) 4.08 Lymph # (Auto) 0.80 L Trigg # (Auto) 0.81 H Eos # (Auto) 0.14 Baso # (Auto) 0.04 APTT 42.7 H PTT Ratio 1.6 Sodium Potassium Chloride Carbon Dioxide Anion Gap BUN Creatinine Est Cr Clr Drug Dosing Est GFR ( Amer) Est GFR (Non-Af Amer) BUN/Creatinine Ratio Glucose Calcium Phosphorus Magnesium Troponin I Procalcitonin 0.06 TSH Nasal Screen MRSA (PCR) 04/13/19 12:40 WBC RBC Hgb Hct MCV MCH MCHC RDW Std Deviation RDW Coeff of [place] Plt Count MPV Immature Gran % (Auto) Neut % (Auto) Lymph % (Auto) Trigg % (Auto) Eos % (Auto) Baso % (Auto) Immature Gran # (Auto) Neut # (Auto) Lymph # (Auto) Trigg # (Auto) Eos # (Auto) Baso # (Auto) APTT PTT Ratio Sodium Potassium Chloride Carbon Dioxide Anion Gap BUN Creatinine Est Cr Clr Drug Dosing Est GFR ( Amer) Est GFR (Non-Af Amer) BUN/Creatinine Ratio Glucose Calcium Phosphorus Magnesium Troponin I 0.042 Procalcitonin TSH Nasal Screen MRSA (PCR) Diagnostic Findings Chest CT demonstrated right lower lobe pulmonary emboli. There was also evidence of bilateral upper lobe consolidative changes. Venous duplex of the lower extremities demonstrated thrombus in the right leg. Echocardiogram performed today revealed preserved LV systolic function without regional wall motion abnormalities. Minor dilation of the inferior vena cava. No significant valvular heart disease. ECG Additional Comments: EKG obtained at the time admission was normal sinus. Normal EKG. PG Care Time/CCT Total # of Minutes Spent Total Time Spent with Patient: Total time spent is greater than 50% in coordination of care (as documented) at patient's floor/unit and/or counseling patient: (1) CAD (coronary artery disease) Coronary Disease-Associated Artery/Lesion type: [place] artery [place] vs. transplanted heart: [place] heart Associated angina: without angina Qualified Code(s): I25.10 - Atherosclerotic heart disease of [place] coronary artery without angina pectoris (2) Pulmonary embolism Pulmonary embolism type: unspecified Chronicity: acute Acute cor pulmonale presence: without acute cor pulmonale Qualified Code(s): I26.99 - Other pulmonary embolism without acute cor pulmonale
[2019-04-13] MEDS ORDERED: ZOLPIDEM TARTRATE 5 MG TAB PO PRN (20:53)
[2019-04-13 21:14] LABS: Partial Thromboplastin Ratio 2.6
[2019-04-13 21:24] LABS: Partial Thromboplastin Time 71.4 Seconds (21.0-31.0)
[2019-04-14 04:10] LABS: Hematocrit (blood only) 34.3 % (42-52); Hemoglobin 10.8 g/dL (14.0-18.0); Mean Corpuscular Hemoglobin 30.3 pg (25-34); Mean Corpuscular Hgb Conc 31.5 g/dL (32-36); Mean Corpuscular Volume 96.3 fL (80-100); Mean Platelet Volume 8.1 fL (7.4-10.4); Platelet Count 532 K/uL (130-400); RDW Coefficient of Variation 14.4 % (11.5-14.5); RDW Standard Deviation 50.8 fL (36.4-46.3); Red Blood Count 3.56 M/uL (4.7-6.1); White Blood Count 5.19 K/uL (4.8-10.8)
[2019-04-14 04:27] LABS: BUN Creatinine Ratio 9.3 (10-20); Calcium 9.4 mg/dl (8.5-10.1); Est GFR (African American) 131.5; Est GFR (Non-African American) 113.4; Potassium 3.7 mmol/L (3.5-5.1)
[2019-04-14 04:28] LABS: Partial Thromboplastin Ratio 2.3
[2019-04-14 04:29] LABS: Partial Thromboplastin Time 62.3 Seconds (21.0-31.0)
[2019-04-14 04:31] LABS: T4 Free Thyroxine 1.08 ng/dl (0.8-1.6)
[2019-04-14] MEDS: LEVOTHYROXINE SODIUM 50 MCG TABLET PO SCH (05:26)
[2019-04-14] MEDS ORDERED: VANCOMYCIN TROUGH ONE (05:30)
[2019-04-14] MEDS: BuPROPion XL 150 MG TABCR PO SCH (08:11)
[2019-04-14] MEDS: ATORVASTATIN 40 MG TAB PO SCH (08:11)
[2019-04-14] MEDS: FLUTICASONE PROP HFA INH 44 MCG INHALER INH SCH (08:12)
[2019-04-14] MEDS: CLOPIDOGREL BISULFATE 75 MG TAB PO SCH (08:12)
[2019-04-14] MEDS: METOPROLOL TARTRATE 25 MG TAB PO SCH (08:12)
[2019-04-14] MEDS: ASPIRIN 81 MG ECTAB PO SCH (08:12)
[2019-04-14] MEDS: AMLODIPINE BESYLATE 5 MG TAB PO SCH (08:12)
[2019-04-14] MEDS: POTASSIUM CHLORIDE 20 MEQ TABCR PO SCH (08:12)
[2019-04-14] MEDS: MULTIVITAMIN TAB PO SCH (08:12)
[2019-04-14] MEDS: ESCITALOPRAM OXALATE 20 MG TAB PO SCH (08:12)
[2019-04-14] MEDS: ESCITALOPRAM OXALATE 10 MG TAB PO SCH (08:12)
--- NOTE | 2019-04-14 09:20 | Pulmonology Progress Note ---
Date of Service April 14, 2019 Assessment & Plan (1) Pulmonary embolism: Impression: 48-year-old male with complicated medical history admitted from rehab found to have subsegmental pulmonary embolism. Patient does have some markers for high risk including elevated pulmonary arterial pressure however the right ventricular morphology was normal with no evidence of strain. His troponin was also borderline elevated. He has not demonstrated any bleeding complications associated with anticoagulation. Recommendations: 1. Subsegmental PE: Would recommend 6 months of anticoagulation. Okay to transition to oral anticoagulants. Given the elevated pulmonary arterial pressures on echocardiogram, would recommend follow-up echo in 3 months after being on anticoagulation to ensure pressures are normalizing although the patient does have multiple other etiologies for elevated pulmonary pressures given his complicated course at [facility]. 2. Pulmonary hypertension: See above. The patient is currently [place] Heart Association class 0 so would not recommend any additional evaluation 3. Thigh hematoma: The shanell can be removed from a pulmonary perspective. Defer to primary service. Would have the patient ambulate around the hospital to ensure that his oxygen saturations can be maintained on room air and that he does not develop any syncope presyncope or chest pain. If he does well, he would be appropriate to consider for dismissal from the hospital from a pulmonary perspective. Feel free to contact us with additional questions or concerns Pulmonary embolism type: unspecified Chronicity: unspecified Acute cor pulmonale presence: unspecified Qualified Code(s): I26.99 - Other pulmonary embolism without acute cor pulmonale (2) Pneumonia: Pneumonia type: due to unspecified organism Laterality: unspecified laterality Lung location: unspecified part of lung Qualified C ode(s): J18.9 - Pneumonia, unspecified organism (3) Hematoma following procedure: Subjective Patient seen and examined. EMR reviewed. He is doing well this morning. No complaints. No chest pain or palpitations. No chest pressure. No evidence of bleeding while on anticoagulation. He is not noted any pain in his thigh or groin. No hemoptysis. Review of Systems Review of Systems: Unchanged from prior Physical Exam Constitutional: WD/WN, vitals as above Neck: trachea midline, no thyromegaly Respiratory: normal respiratory effort, lungs clear to auscultation Cardiovascular: RRR, no murmur, no edema Gastrointestinal (Abdomen): normal bowel sounds, soft, nontender, no hepatosplenomegaly Musculoskeletal: Extremities: extremities normal to inspection Skin: no rashes, warm and dry Neurologic: Nonfocal exam Lymphatic: no cervical lymphadenopathy Results & Data Vital Signs (Past 12 Hours) Vital Signs Temp Pulse Pulse Resp BP Pulse Ox 04/14/19 07:33 37.0 C 97 H 12 117/77 98 04/14/19 03:32 36.8 C 115 H 18 119/73 95 04/13/19 23:11 37.3 C 103 H 16 125/91 95 04/13/19 22:31 101 H Laboratory Results 04/14/19 03:42 04/14/19 03:42 Diagnostic Findings No new films Echocardiogram showed normal left ventricular systolic function with normal right ventricular morphology with an elevated right ventricular systolic pressure at 30-40 PG Care Time/CCT Total # of Minutes Spent Total Time Spent with Patient: Total time spent is greater than 50% in coordination of care (as documented) at patient's floor/unit and/or counseling patient:
--- NOTE | 2019-04-14 13:25 | Cardiology Progress Note ---
Date of Service April 14, 2019 Assessment & Plan (1) Chest pain: Unclear what precipitated his symptoms of chest pain. This may have been anxiety or another noncardiac etiology. The episode itself was very fleeting in nature. He has not had any recurrence with ambulation or activity. I think if he were to have a complication related to his prior intervention it would be more significant. His cardiac biomarkers are essentially normal. We did discuss noninvasive testing yesterday but I do not think this is indicated and he has had some adverse experiences with testing recently. I think would be safe to discharge him on his outpatient medical regimen with the addition of an anti coagulant. Subjective This morning patient claims to be feeling well. He reported [facility]. He did not have any recurrence of the chest pain he experienced yesterday. He did have some fatigue and perhaps some tiredness in his limbs with ambulation. He has not report limiting dyspnea. Review of Systems Review of Systems: Per HPI Physical Exam Physical Exam: The patient is alert and oriented. Mood and affect appeared normal. He answered all questions appropriately. HEENT: Pupils are equal and reactive to light and accommodation. Extraocular movements are intact. The sclerae are anicteric. Neuro: Cranial nerves intact Lungs: Clear to auscultation bilaterally. He has good air movement without use of accessory muscles. No rales wheezes or rhonchi. Cardiac: Heart demonstrates a regular rate and rhythm. Normal S1 and S2. No murmurs on examination. Pulses: The patient has palpable radial pulses bilaterally that are equal in intensity Extremities: There was no evidence of hypoperfusion. There is no cyanosis or clubbing. There is no edema. Herbert in the right groin. Skin: I did not appreciate any rashes on examination today. Bandage in left groin. Results & Data Vital Signs (Past 12 Hours) Vital Signs Temp Pulse Pulse Resp BP Pulse Ox 04/14/19 11:34 37.0 C 94 H 22 124/82 97 04/14/19 11:17 98 04/14/19 08:00 101 H 04/14/19 07:33 37.0 C 97 H 12 117/77 98 04/14/19 03:32 36.8 C 115 H 18 119/73 95 Laboratory Results Abnormal Lab Results 04/13/19 04/14/19 04/14/19 20:28 03:42 03:42 WBC 5.19 RBC 3.56 L Hgb 10.8 L Hct 34.3 L MCV 96.3 MCH 30.3 MCHC 31.5 L RDW Std Deviation 50.8 H RDW Coeff of [place] 14.4 Plt Count 532 H MPV 8.1 APTT 71.4 H* PTT Ratio 2.6 Sodium 138 Potassium 3.7 Chloride 108 H Carbon Dioxide 25 Anion Gap 5.0 BUN 6 L Creatinine 0.65 Est Cr Clr Drug Dosing 136.0 Est GFR ( Amer) 131.5 Est GFR (Non-Af Amer) 113.4 BUN/Creatinine Ratio 9.3 L Glucose 130 H Calcium 9.4 Free T4 1.08 04/14/19 03:42 WBC RBC Hgb Hct MCV MCH MCHC RDW Std Deviation RDW Coeff of [place] Plt Count MPV APTT 62.3 H* PTT Ratio 2.3 Sodium Potassium Chloride Carbon Dioxide Anion Gap BUN Creatinine Est Cr Clr Drug Dosing Est GFR ( Amer) Est GFR (Non-Af Amer) BUN/Creatinine Ratio Glucose Calcium Free T4 PG Care Time/CCT Total # of Minutes Spent Total Time Spent with Patient: Total time spent is greater than 50% in coordination of care (as documented) at patient's floor/unit and/or counseling patient: (1) Chest pain Chest pain type: unspecified Qualified Code(s): R07.9 - Chest pain, unspecified
[2019-04-14] MEDS ORDERED: PANTOprazole 40 MG TAB PO SCH (14:15)
[2019-04-14] MEDS ORDERED: SODIUM CHLORIDE 0.65% NA SOLN 45 ML (OCEAN) PRN (14:15)
[2019-04-14] MEDS ORDERED: MUPIROCIN 2% OINT 22 GM TUBE EXT SCH (14:20)
[2019-04-14] MEDS ORDERED: SODIUM CHLORIDE 0.65% NA SOLN 45 ML (OCEAN) ONE (14:20)
[2019-04-14] MEDS ORDERED: APIXABAN 5 MG TABLET PO SCH (14:30)
--- NOTE | 2019-04-14 16:46 | Discharge Summary ---
Date of Service date of admission - April 12, 2019 date of discharge - April 14, 2019 Admission HPI Per Admitting Provider Brent Graves is a very pleasant 48-year-old female with complicated medical history. Of note, majority of patient's care occurred at [facility]. We do not have records at this time but they have been requested. On 22 February 2019 patient went to [facility] for scheduled knee surgery. He reports that during anesthesia induction he had a cardiac arrest CPR was initiated with ROSC attained. He was subsequently life flighted to [facility] during which he had a second cardiac arrest. He was taken directly to the [facility] where he was found to have a total LAD occlusion as well as a circumflex occlusion. Patient had a third cardiac arrest in the [facility]. He had 3 stents placed. Then proceeded to have a prolonged, 37-day ICU stay during which he was managed with ECMO. He developed left groin wound and hemorrhage while on anticoagulation. Also developed DVT x2, one in the neck and one in the leg. Additionally, he had a ventilator associated pneumonia treated with antibiotics and acute blood loss anemia. Patient reports waking up on 22 March and being told that all his complications had resolved. He has no recollection of his ICU stay. He has a wound VAC in place in the left groin. He was subsequently discharged to [facility] for rehab on 03/31/2019. Patient reports that he is pleased with his progress at [facility]. He is able to participate in PT and OT without difficulty. He reports walking 500 feet today. Today around 1130 he developed bandlike chest discomfort, squeezing in nature which he equates to angina. Pain associate with diaphoresis. Nitro x1 was given with relief. He denies shortness of breath/cough/wheeze/palpitations. She denies abdominal pain/nausea/vomiting/diarrhea/constipation. No additional complaints at this time. On arrival to the ER, patient found to be afebrile, hemodynamically stable. Labs significant for mildly elevated troponin at 0.046. EKG with no acute ischemic changes. CT chest with right lower lobe pulmonary emboli and consolidative infiltrative change in the medial aspect of the right upper lobe. Given patient's extensive and complicated stay at [place], transfer was requested. He was accepted by Dr. Singh and is awaiting a bed - expected to be available tomorrow afternoon. Patient currently chest pain-free with no additional complaints ER course: Heparin drip, Levaquin 750 mg IV, vancomycin 1750 mg IV, Zosyn 4.5 g IV, nitroglycerin 1 inch, potassium 40 mEq p.o. Principal Diagnosis right-sided PEs Discharge Exam Constitutional well developed and well nourished; no acute distress ENMT Nose: + septum abnormality (right anterior septum with dried blood from site of epistaxis) and + dry nasal mucous membranes Mouth: no oral mucosal abnormality Respiratory normal respiratory effort, lungs clear to auscultation Cardiovascular Rate/Rhythm: regular rate and regular rhythm Heart Sounds: normal S1 and normal S2; no murmur Vessels: posterior tibial pulses present and dorsalis pedis pulses present; no JVD Extremities: no edema Gastrointestinal (Abdomen) normal bowel sounds, soft, nontender, no hepatosplenomegaly Skin right groin - small, irregularly-shaped wound, no drainage, largely intact, shanell now absent s/p removal. left groin - large wound, mild serous drainage, no odor, no surrounding erythema, no swelling. Psychiatric A+Ox3, euthymic affect Discharge Data Allergies Allergy/AdvReac Type Severity Reaction Status Date / Time Penicillins Allergy Unknown Unverified 04/12/19 14:08 pneumococcal vaccine Allergy Unknown Unverified 04/12/19 14:08 Consultations 1. cardiology - Desmond Connolly MD 2. pulmonary - Jarred Springer MD 3. PT, OT Ordered Studies 1. CTA chest - IMPRESSION: 1. Study is positive for right lower lobe pulmonary emboli. 2. Consolidative infiltrative change medial aspect upper right 3. Pleural reactive change at both lung bases. 4. Study should be repeated a later date to ensure complete resolution of the atelectatic or consolidative changes of the upper lobe regions. 2. b/l LE venous dopplers - FINDINGS: On the left, no thrombus was visualized. The study was limited as the common femoral, greater saphenous, profunda veins could not be evaluated due to a overlying wound VAC. On the right, there is nonocclusive thrombus within the right common femoral vein, within one of 2 duplicated mid to distal superficial femoral veins, and one of 2 posterior tibial veins. Within the anterior thigh, there is a hypoechoic elongated mass measuring 16 x 9 x 2 cm. Although nonspecific, this likely represents a hematoma. IMPRESSION: 1. Right lower extremity DVT. 2. 16 x 9 x 2 cm hypoechoic right anterior thigh mass, likely representing a hematoma. Clinical follow-up is advocated. 3. echocardiogram - * EF 60-65% * mild pulmonary HTN * mildly dilated IVC * normal valve function Hospital Course (1) Pulmonary embolism: CTA chest showed right lower lobe pulmonary emboli. CTA had been obtained in the ER at presentation because of his chest pain. Dopplers of legs ultimately revealed RLE DVT. The DVT/PEs were provoked in that he had extreme immobility during his 1-month stay at [facility]. He also had a right IJ DVT while hospitalized at [facility] - presumably provoked by use of catheters. He was admitted to the telemetry unit and remained stable in room air without an y O2 requirement. He never had dyspnea. He also remained hemodynamically stable. Heparin infusion was initiated for the DVT/PEs. Records were reviewed from his lengthy stay at [facility] -- He had had pulmonary hemorrhage while on ECMO. He also had a hemorrhage into his right thigh after having been started on systemic anticoagulation for the right internal jugular thrombus. Systemic anticoagulation was stopped due to the right thigh hematoma. Pulmonary was formally consulted and they felt that neither of the 2 bleeding issues above were absolute contraindications to anticoagulation. Thus, heparin was cautiously continued and his right thigh hematoma was monitored carefully while on heparin. Fortunately his H/H remained stable and his right thigh hematoma did not enlarge while hospitalized. Prior to discharge the heparin was stopped and eliquis was initiated. He will take 10mg BID of eliquis for 7 days followed by 5mg BID thereafter. 6 months of treatment was advised. Retrospectively I am uncertain if his presenting chest pain was from the PEs or from angina. The pain resolved with nitroglycerin, and it was similar to past episodes of angina. Either way he will receive treatment for the PEs and he remained stable from a cardiac standpoint during this visit. (2) DVT (deep venous thrombosis): RLE as noted on doppler. Treated with heparin infusion followed by initiation of DOAC (eliquis). 6 months of treatment advised. (3) Hematoma of right thigh: This had developed while hospitalized at [facility] in March. Records suggest that while on heparin for thrombus of the right internal jugular vein he developed a large hematoma of the right thigh. Systemic anticoagulation at that time was discontinued. The hematoma is still present and palpable on exam but was asymptomatic. After we started heparin (and later eliquis) at [facility] he had NO change in his right thigh, no worsening right thigh symptoms, and H/H remained stable. A thigh circumference checked before discharge was roughly 55cm. Would advise DAILY THIGH CIRCUMFERENCE checks for about 1 week to ensure stability in the hematoma given that the patient is now back on systemic anticoagulation. I have placed 2 isabel on the RIGHT thigh where measurements should be taken. After 1 week if measurements are stable they can be discontinued. (4) Pneumonia: CT with consolidative infiltrative change medial aspect of the upper right lobe. He was afebrile, had no cough/congestion/fever/chills, was eating well, and had no leukocytosis. It was believed that these changes were more likely chronic from his prior hospitalization at [facility] rather than acute. Thus, he was not treated for pneumonia. Antibiotics were discontinued on hospital day #1. (5) CAD (coronary artery disease): Cardiac arrest x 3 in February 2019. Found to have total LAD occlusion as well as circumflex disease status post stent x3. s/p prolonged ICU stay at [facility] much of which was spent on ECMO. He also had stents placed in 2018. Troponin minimally elevated during this stay. This easily could have been from his PEs. Alternatively, the chest pain could have been anginal in nature leading to a small troponin leak. Echo with preserved EF and normal wall motion during this admission. Seen by [facility] cardiology, Dr Connolly. No medication changes were made. In light of stable echo and no recurrent symptoms additional testing was deferred. He will continue aspirin 81 mg p.o. daily, atorvastatin 80 mg p.o. daily, Plavix 75 mg p.o. daily, metoprolol 25 mg p.o. twice daily, and SL nitro prn. (6) Hypothyroid: TSH mildly elevated. Free T4 was normal. Continue Synthroid 50 mcg p.o. daily Recommend repeat TSH in the weeks post-discharge and adjustment to synthroid if necessary. (7) Hypertension: Chronic. Controlled. Continue amlodipine 10 mg p.o. daily -Continue metoprolol 25 mg p.o. twice daily (8) Depression: Chronic. Controlled. Continue escitalopram 20 mg p.o. daily Continue Wellbutrin 150 mg p.o. daily (9) Hyperlipidemia: Continue atorvastatin (10) Asthma: No exacerbation during this visit. Cont flovent. Albuterol prn. (11) Cardiac arrest: s/p cardiac arrest 02/2019 with successful ROSC. s/p near 30-day stay at [facility] much of which was spent on ECMO and ventilator. (12) Wound of left groin: Wound VAC was initially removed by wound care team and covered with optifoams. However, on day of discharge, the wound was draining fluid again and thus the wound care team advised that upon return to [facility] the wound vac be placed back on the left groin wound. Cont local dressings to right groin wound. Of note- shanell in right groin wound WERE REMOVED this admission. Please consider f/u at the [facility] for the left groin wound. (13) Elevated troponin: see discussion above in "CAD" likely myocardial demand ischemia - possibly due to PEs peak troponin -- 0.05 Total Time Total Time Spent Total Time Spent (In Minutes): 60 Total Time Includes: Examination of the Patient, Discharge Planning, Medication Reconciliation and Communication With Other Providers Discharge Plan Discharge Items Patient Disposition: Transfer [facility] Reason For Visit: right-sided pulmonary emboli Discharge Diagnosis: 1. right-sided pulmonary emboli 2. right leg DVT 3. right leg anterior thigh hematoma (was present at [facility] in March) 4. minimally elevated troponin level - likely due to #1 above 5. wound, left groin - ongoing Activity: Resume your previous activity Bathing Comment: please observe any recommendations made by [facility] Non-emergency contact: Primary Care Provider, Surgeon, Specialist and Tip Tester Call non-emergency contact if: you have any medication questions, your symptoms worsen, your pain is not controlled, your pain is worsening, your pain is unusual for you, your pain is concerning for you, you have a fever, your wound has increased redness, your wound has increased drainage and your wound pain has increased Follow-up/Referrals: Elsie Thao [Primary Care Provider] - Diet: Heart Healthy Addtl Attending Provider Instructions: You were admitted for chest pain. The chest pain was either due to your heart or due to the newly-discovered blood clots in the right lung. Either way the chest pain resolved quickly. You were started on heparin through your IV for the blood clots. We also discovered that you have a DVT blood clot in your right leg. The blood clots ("Pulmonary emboli") in your lung came from the right leg. You tolerated the blood thinner well and now you will be taking eliquis blood thinner for 6 months. You were seen by the lung and heart specialists. Both agreed that you need blood thinners for your blood cots in the leg & right lung. Since eliquis is a blood thinner there is a chance that it could cause more bleeding in your right thigh. At [place] you had developed a "hematoma" (blood collection) in your right thigh. Your right thigh will have to be watched carefully. I have placed isabel on your thigh and I want [facility] to measure your thigh daily at this marking. The current circumference is 55cm. Recommendations - 1. Eliquis --- * 10mg TWICE DAILY x 7 days, then - * 5mg TWICE DAILY thereafter * first dose evening of 04/14/19 at bedtime * take for 6 months 2. For your irritated right nostril - * bactroban ointment twice daily to both nostrils for 10 days * nasal saline spray every 1 hour as needed for dryness/irritation 3. wound vac for left groin wound -- see Wound Care Nurse Instructions from [facility] 4. change dressing on right groin PRN and ultimately stop those dressing changes on the right groin once wound is completely healed 5. check TSH, CBC, and BMP in 3-4 days; results to medical oncology physician 6. Right thigh circumference on 04/14/19 is 55cm. I have placed 2 isabel on anterior right thigh where you should measure. Please measure daily for stability. Please measure the thigh circumference for 5 days at minimum to ensure the right thigh hematoma is not enlarging while on blood thinners. 7. Check daily AM weight on standing scale. If any weight gain of more than 2- 3 pounds over 1-2 days please let medical oncology physician know right away. Follow-up appointments - 1. see medical oncology physician of SNF within [address] Miranda - cardiology in [place] - on April 26 as scheduled 3. see [facility] in [place] this coming week if possible; this appointment has not been scheduled 4. any lingering appointments at [facility] or in [place], [place] that were set up by [facility] - please keep those previous appointments 5. pt should f/u with PCP within 1 week of discharge from [facility] Return to [facility] if - -any concerns of bleeding from the nose, rectum, penis, the wound, etc -any worsening shortness of breath or chest pain -you use nitroglycerin tablets for chest pain -you have fevers over 100.5 degrees -your right thigh enlarges in size ANY OTHER CONCERNS Additional Blood Clot instructions - Your DVT/pulmonary embolus condition is typically treated with an anticoagulant. Anticoagulants will thin your blood to help prevent new clots. * You should take her medication exactly as directed. * Never skip a dose. * Never take a double dose. If you miss a dose, take it as soon as you remember. Call your Primary Care doctor if you experience any of the following: * Swelling or Pain in your leg * Sudden, continuous pain deep in a muscle * Pain that worsens when you are active or when you stand still for a long time * Chest Pain * Sudden Shortness of Breath * Rapid or pounding heart beat * Fainting * Dizziness * Cough with blood or bloody sputum * Sweating more than normal * Bruises * Heavy or uncontrolled bleeding * Blood in your urine, stool or vomit * Black or tarry stools Caring for Your Self at Home: * Avoid sitting, standing or lying down for long periods without moving your legs and feet * When traveling by car, stop to get out and move around at least once every 3 hours * On long airplane, train or bus rides, get up and move around when possible * If you can't get up, wiggle your toes and tighten your calves to keep your blood moving Pending Studies at Discharge: No Stand-Alone Forms: Call Back Authorization, [facility] Skilled Items Patient informed of condition?: Yes DNR: No Discharge Level of Care: Skilled Communicable Disease: No Discharge Prognosis: Stable Lines: None Urinary Catheter: No Medications and DC Order Prescriptions: New pantoprazole 40 mg Tablet,Delayed Release (Dr/Ec) 40 mg PO QAM Qty: 30 RF: 11 mupirocin 2 % Ointment 1 applic EXT BID Qty: 30 RF: 0 Eliquis 5 mg Tablet 5 mg PO DIRECTED Qty: 60 RF: 1 sodium chloride [Nasal [place] (sodium chloride)] 0.65 % aerosol,spray 2 sprays INTNAS Q1H PRN (Reason: dry nasal passages) Qty: 50 RF: 0 potassium chloride 10 mEq capsule, extended release 10 meq PO DAILY Qty: 30 RF: 1 Continued atorvastatin [Lipitor] 80 mg Tablet 80 mg PO DAILY RF: 0 melatonin 3 mg Tablet 6 mg PO HS PRN (Reason: Insomnia) RF: 0 clopidogrel 75 mg Tablet 75 mg PO DAILY RF: 0 aspirin [Aspirin Low Dose] 81 mg Tablet,Delayed Release (Dr/Ec) 81 mg PO DAILY RF: 0 amlodipine 10 mg Tablet 10 mg PO DAILY RF: 0 levothyroxine 50 mcg Tablet 50 mcg PO DAILY RF: 0 bisacodyl [Dulcolax (bisacodyl)] 10 mg Suppository 10 mg MD DAILY PRN (Reason: Constipation) RF: 0 Flovent HFA 44 mcg/actuation Hfa Aerosol Inhaler 2 puff INHALATION BID RF: 0 nitroglycerin 0.4 mg Tablet, Sublingual 0.4 mg sublingual DIRECTED PRN (Reason: Chest Pain) RF: 0 albuterol sulfate [Ventolin HFA] 90 mcg/actuation Hfa Aerosol Inhaler 2 puff INHALATION Q6H PRN (Reason: Shortness Of Breath) RF: 0 escitalopram oxalate [Lexapro] 10 mg Tablet 10 mg PO DAILY RF: 0 escitalopram oxalate [Lexapro] 20 mg Tablet 20 mg PO DAILY RF: 0 metoprolol tartrate 25 mg Tablet 25 mg PO BID RF: 0 sennosides 8.6 mg Tablet 8.6 mg PO BID PRN (Reason: Constipation) RF: 0 acetaminophen 325 mg Tablet 650 mg PO Q6H PRN (Reason: Pain) RF: 0 acetaminophen 325 mg Tablet 650 mg PO Q6H PRN (Reason: Fever) RF: 0 magnesium hydroxide [Milk of Magnesia] 400 mg/5 mL Suspension 30 ml PO DAILY PRN (Reason: Constipation) RF: 0 bupropion HCl 150 mg Tablet Extended Release 24 Hr 150 mg PO DAILY RF: 0 Stress Formula with Zinc Tablet 1 tab PO DAILY RF: 0 oxycodone 10 mg Tablet 10 mg PO Q4H PRN (Reason: Pain) Qty: 30 RF: 0 Discontinued fluconazole [Diflucan] 100 mg Tablet 100 mg PO DAILY RF: 0 Discharge Orders: Discharge Order (Routine); Ordered 04/14/19 Ordered By: Kunal Liu/Other Patient Handouts: Embolism Pulmonary, ED DVT Admission Data Admit Date/Time: 04/12/19 15:45 Attending Provider: Kunal Weston Admit Provider: Jessica Noel Primary Care Provider: Elsie Thao Other Providers: Jessica Noel ; Jarred Springer ; Wang Connolly ; Master, Miguel Interventions: Discharge Summary Assessment (RN) Last Done: 04/14/19 16:40 DC Date/Time DO NOT enter until pt leaves facility: 04/14/19 17:08
--- NOTE | 2019-04-17 10:46 | XCELERA ---
[id number] [id number]
== END 2019-04-14 17:08 | DRG 175 ==
LOC: ED 12:09 → 2E 15:45 → SUATTDRO 15:45 → 2E 16:18